=== PATIENT | male | born 1945 | race Caucasian/White ===

== ENCOUNTER 2017-08-21 18:22 | Observation (INO) | payer MEDICARE, OTHER ==
[~2017-08-21] VITALS: Ht 175.3 cm; Wt 100.3 kg
[~2017-08-21 18:22] MED LIST: ASPI-1265 PO; BENA20TA2 PO; CARV-50 PO; SIMV20TA5 PO
[2017-08-21 18:47] LABS: BASOPHILS % (AUTO) 0.7 % (0-1); EOSINOPHILS # (AUTO) 0.2 X10'3 (0-0.9); EOSINOPHILS % (AUTO) 3.1 % (0-6); HEMATOCRIT 46.6 % (42.0-52.0); HEMOGLOBIN 15.3 g/dl (14.0-17.9); LYMPHOCYTES # (AUTO) 1.7 X10'3 (1.1-4.8); LYMPHOCYTES % (AUTO) 25.4 % (21-51); MEAN CORPUSCULAR HEMOGLOBIN 28.7 PG (27.0-31.0); MEAN CORPUSCULAR HGB CONC 32.9 % (33.0-36.5); MEAN CORPUSCULAR VOLUME 87.3 FL (78-98); MEAN PLATELET VOLUME 12.6 FL (7.4-10.4); MONOCYTES # (AUTO) 0.6 X10'3 (0-0.9); MONOCYTES % (AUTO) 9.4 % (2-12); NEUTROPHILS # (AUTO) 4.1 X10'3 (1.8-7.7); NEUTROPHILS % (AUTO) 61.4 % (42-75); PLATELET COUNT 115 X10'3 (140-440); RED BLOOD COUNT 5.34 X10'6 (4.70-6.10); WHITE BLOOD COUNT 6.7 X10'3 (4.5-11.0)
[2017-08-21 19:01] LABS: PARTIAL THROMBOPLASTIN TIME 26 SECONDS (22-32); PROTHROMBIN TIME 10.2 SECONDS (9.0-12.0)
[2017-08-21 19:03] LABS: ALANINE AMINOTRANSFERASE 50 U/L (12-78); ALBUMIN 3.9 G/DL (3.4-5.0); ALBUMIN/GLOBULIN RATIO 1.1 (1.1-1.5); ALKALINE PHOSPHATASE 52 IU/L (46-116); ANION GAP 9 (8-16); ASPARTATE AMINO TRANSFERASE 45 U/L (10-37); BILIRUBIN,TOTAL 0.5 MG/DL (0.1-1.0); BLOOD UREA NITROGEN 20 MG/DL (7-18); CHLORIDE 109 MMOL/L (99-107); CREATININE 1.33 MG/DL (0.60-1.10); GLUCOSE 122 MG/DL (70-104); POTASSIUM 4.5 MMOL/L (3.5-5.1); SODIUM 143 MMOL/L (135-145); TOTAL CARBON DIOXIDE 24.8 MMOL/L (24-32); TOTAL PROTEIN 7.4 G/DL (6.4-8.2); eGFR 53 ML/MIN
[2017-08-21 21:49] LABS: LARGE PLATELETS FEW; PLATELET ESTIMATE DECREASED
[2017-08-21] MEDS ORDERED: digoxin 250mcg/ml 2ml ampule IV ONE (23:15)
[2017-08-22] MEDS ORDERED: furosemide 10 MG/1 ML 10ml inj IV ONE (00:30)
[2017-08-22] MEDS ORDERED: potassium Cl 20 mEq SR tablet PO PRN ×2 (03:30)
[2017-08-22] MEDS ORDERED: ondansetron/PF 4mg/2ml inj IV PRN (03:30)
[2017-08-22] MEDS ORDERED: magnesium hydroxide 30ml (MOM) UD suspension PO PRN (03:30)
[2017-08-22] MEDS ORDERED: mag hydrox/Alum hydrox/simeth 30ml oral suspension PO PRN (03:30)
[2017-08-22] MEDS ORDERED: potassium Cl 40MEQ/NS 500ml 500 ML IV PRN ×2 (03:30)
[2017-08-22] MEDS ORDERED: acetaminophen 325mg tablet PO PRN (03:30)
[2017-08-22] MEDS: K and/or MAG REPLACEMENT MC SCH (08:00)
[2017-08-22] MEDS ORDERED: furosemide 10 MG/1 ML 10ml inj IV SCH (08:00)
[2017-08-22] MEDS: aspirin 81mg tab.chew PO SCH (09:32)
[2017-08-22] MEDS: atorvastatin 10mg tablet PO SCH (09:32)
[2017-08-22] MEDS: carVEDilol 12.5mg tablet PO SCH ×2 (09:37→20:01)
[2017-08-22] MEDS: lisinopril 20mg tablet PO SCH (10:05)
[2017-08-22] MEDS ORDERED: furosemide 40mg/4ml inj IV SCH (20:14)
[2017-08-22 20:15] VITALS: BP 129/90
[2017-08-22] MEDS ORDERED: LORazepam 1 MG tablet PO ONE (21:00)
[2017-08-22] MEDS ORDERED: enoxaparin 40mg/0.4ml syringe SUBCUT SCH (23:40)
[2017-08-22] MEDS ORDERED: methylPREDNISolone sod succ 125mg/2ml vial IV ONE (23:50)
[2017-08-23] VITALS: BP 117/77
[2017-08-23] MEDS: ipratropium/albuterol 3ml nebule NEB SCH ×2 (02:23→08:23)
[2017-08-23 06:07] LABS: BASOPHILS % (AUTO) 0.2 % (0-1); EOSINOPHILS # (AUTO) 0.1 X10'3 (0-0.9); EOSINOPHILS % (AUTO) 1.5 % (0-6); HEMATOCRIT 48.9 % (42.0-52.0); HEMOGLOBIN 16.4 g/dl (14.0-17.9); LYMPHOCYTES # (AUTO) 0.6 X10'3 (1.1-4.8); LYMPHOCYTES % (AUTO) 8.5 % (21-51); MEAN CORPUSCULAR HEMOGLOBIN 28.9 PG (27.0-31.0); MEAN CORPUSCULAR HGB CONC 33.5 % (33.0-36.5); MEAN CORPUSCULAR VOLUME 86.3 FL (78-98); MEAN PLATELET VOLUME 12.8 FL (7.4-10.4); MONOCYTES # (AUTO) 0.1 X10'3 (0-0.9); MONOCYTES % (AUTO) 1.2 % (2-12); NEUTROPHILS # (AUTO) 6.5 X10'3 (1.8-7.7); NEUTROPHILS % (AUTO) 88.6 % (42-75); PLATELET COUNT 97 X10'3 (140-440); RED BLOOD COUNT 5.67 X10'6 (4.70-6.10); RED CELL DISTRIBUTION WIDTH 15.7 % (11.5-14.5); WHITE BLOOD COUNT 7.3 X10'3 (4.5-11.0)
[2017-08-23 06:37] LABS: ALBUMIN 3.9 G/DL (3.4-5.0); ANION GAP 13 (8-16); BLOOD UREA NITROGEN 29 MG/DL (7-18); CALCIUM 9.4 MG/DL (8.5-10.1); CHLORIDE 102 MMOL/L (99-107); CHOL/HDL RATIO 2.9 (0.00-4.99); CHOLESTEROL 138 MG/DL (0-200); CREATININE 1.21 MG/DL (0.60-1.10); GLUCOSE 162 MG/DL (70-104); HDL CHOLESTEROL 48 MG/DL (35-60); LDL CHOLESTEROL 73 MG/DL (50-100); SODIUM 140 MMOL/L (135-145); TOTAL CARBON DIOXIDE 24.8 MMOL/L (24-32); TRIGLYCERIDES 95 MG/DL (20-135); eGFR 59 ML/MIN
[2017-08-23 07:09] VITALS: BP 127/83
[2017-08-23] MEDS: atorvastatin 10mg tablet PO SCH (07:21)
[2017-08-23] MEDS: aspirin 81mg tab.chew PO SCH (07:21)
[2017-08-23] MEDS: carVEDilol 12.5mg tablet PO SCH (07:21)
[2017-08-23] MEDS: lisinopril 20mg tablet PO SCH (07:21)
[2017-08-23] MEDS: K and/or MAG REPLACEMENT MC SCH (07:31)
[2017-08-23] MEDS ORDERED: methylPREDNISolone sod succ 125mg/2ml vial IV SCH (08:00)
[2017-08-23] MEDS ORDERED: FURO40TA4 PO (09:53)
[2017-08-23] MEDS ORDERED: POTA10TA36 PO (09:53)
[2017-08-23 10:59] VITALS: BP 123/75
== END 2017-08-23 13:00 | disposition home or self-care (01) ==
LOC: ER 18:23 → ED HOLD 08-22 03:28 → EDBEDREQ 08-22 17:52 → SUR 3N 08-22 20:10
PROVIDERS: ADMIT Family Medicine; ATTEND Nurse Practitioner Family
DX: I13.0 Hypertensive heart and chronic kidney disease with heart failure and stage 1 through stage 4 chronic kidney disease, or unspecified chronic kidney disease (principal); I50.23 Acute on chronic systolic (congestive) heart failure; N18.3 Chronic kidney disease, stage 3 (moderate); E78.5 Hyperlipidemia, unspecified; M19.90 Unspecified osteoarthritis, unspecified site; I48.91 Unspecified atrial fibrillation; J96.20 Acute and chronic respiratory failure, unspecified whether with hypoxia or hypercapnia; Z87.891 Personal history of nicotine dependence; Z95.810 Presence of automatic (implantable) cardiac defibrillator
CPT/HCPCS: 36415; 71045; 80048; 80053; 80061; 83880; 84484; 85025; 85610; 85730; 87070; 93005; 93306; 94640; 94760; 96372; 96374; 96375; 96376; 99285; G0378; J1650; J1940; J2930

== ENCOUNTER 2017-08-27 08:03 | Inpatient (IN) | payer MEDICARE, OTHER ==
[~2017-08-27] VITALS: Ht 172.7 cm; Wt 11.3 kg
[~2017-08-27 08:03] MED LIST changes: +FURO40TA4 PO; +POTA10TA36 PO
[2017-08-27 08:24] LABS: BASOPHILS % (AUTO) 0.3 % (0-1); EOSINOPHILS # (AUTO) 0.2 X10'3 (0-0.9); EOSINOPHILS % (AUTO) 2.7 % (0-6); HEMATOCRIT 47.3 % (42.0-52.0); HEMOGLOBIN 15.9 g/dl (14.0-17.9); LYMPHOCYTES # (AUTO) 0.9 X10'3 (1.1-4.8); LYMPHOCYTES % (AUTO) 15.5 % (21-51); MEAN CORPUSCULAR HEMOGLOBIN 29.2 PG (27.0-31.0); MEAN CORPUSCULAR HGB CONC 33.6 % (33.0-36.5); MEAN CORPUSCULAR VOLUME 86.8 FL (78-98); MEAN PLATELET VOLUME 12.4 FL (7.4-10.4); MONOCYTES # (AUTO) 0.6 X10'3 (0-0.9); MONOCYTES % (AUTO) 9.1 % (2-12); NEUTROPHILS # (AUTO) 4.4 X10'3 (1.8-7.7); NEUTROPHILS % (AUTO) 72.4 % (42-75); PLATELET COUNT 96 X10'3 (140-440); RED BLOOD COUNT 5.45 X10'6 (4.70-6.10); RED CELL DISTRIBUTION WIDTH 15.1 % (11.5-14.5); WHITE BLOOD COUNT 6.1 X10'3 (4.5-11.0)
[2017-08-27] MEDS ORDERED: normal saline 1000ML IV soln IVB ONE (08:30)
[2017-08-27 08:36] LABS: LARGE PLATELETS MODERATE; PARTIAL THROMBOPLASTIN TIME 23 SECONDS (22-32); PLATELET ESTIMATE DECREASED; PROTHROMBIN TIME 10.6 SECONDS (9.0-12.0)
[2017-08-27 08:42] LABS: ALANINE AMINOTRANSFERASE 29 U/L (12-78); ALBUMIN 3.3 G/DL (3.4-5.0); ALKALINE PHOSPHATASE 43 IU/L (46-116); ANION GAP 11 (8-16); ASPARTATE AMINO TRANSFERASE 11 U/L (10-37); BILIRUBIN,TOTAL 1.4 MG/DL (0.1-1.0); BLOOD UREA NITROGEN 40 MG/DL (7-18); BUN/CREATININE RATIO 28.2 (5.4-32.0); CALCIUM 8.7 MG/DL (8.5-10.1); CHLORIDE 101 MMOL/L (99-107); CREATININE 1.42 MG/DL (0.60-1.10); GLUCOSE 196 MG/DL (70-104); POTASSIUM 4.1 MMOL/L (3.5-5.1); SODIUM 137 MMOL/L (135-145); TOTAL CARBON DIOXIDE 24.8 MMOL/L (24-32); TOTAL PROTEIN 6.7 G/DL (6.4-8.2); eGFR 49 ML/MIN
[2017-08-27] MEDS ORDERED: ondansetron/PF 4mg/2ml inj IV PRN (12:30)
[2017-08-27] MEDS ORDERED: mag hydrox/Alum hydrox/simeth 30ml oral suspension PO PRN (12:30)
[2017-08-27] MEDS ORDERED: magnesium hydroxide 30ml (MOM) UD suspension PO PRN (12:30)
[2017-08-27] MEDS ORDERED: acetaminophen 325mg tablet PO PRN (12:30)
[2017-08-27] MEDS: sodium chloride 0.45% 1,000 ML IV SCH (14:05)
[2017-08-27] MEDS ORDERED: POTASSIUM (14:27)
[2017-08-27] MEDS ORDERED: LASIX (14:27)
[2017-08-27] MEDS ORDERED: BENA20TA2 PO (14:27)
[2017-08-27] MEDS ORDERED: SIMV40TA4 (17:57)
[2017-08-27] MEDS: carVEDilol 12.5mg tablet PO SCH (20:03)
[2017-08-27] MEDS: atorvastatin 10mg tablet PO SCH (20:49)
[2017-08-27] MEDS: heparin, porcine 5000 units/ml vial SQ SCH (20:50)
[2017-08-27 21:50] VITALS: BP 103/56
[2017-08-27] MEDS ORDERED: temazepam 15mg capsule PO PRN (23:40)
[2017-08-28] VITALS (8 sets, daily range): BP systolic 89–133; BP diastolic 40–85
[2017-08-28] MEDS: heparin, porcine 5000 units/ml vial SQ SCH ×2 (08:00→20:47)
[2017-08-28] MEDS: aspirin 81mg tab.chew PO SCH (08:39)
[2017-08-28] MEDS: carVEDilol 12.5mg tablet PO SCH ×2 (08:39→20:46)
[2017-08-28 09:05] LABS: BASOPHILS % (AUTO) 0.4 % (0-1); EOSINOPHILS # (AUTO) 0.1 X10'3 (0-0.9); EOSINOPHILS % (AUTO) 2.1 % (0-6); HEMATOCRIT 47.4 % (42.0-52.0); HEMOGLOBIN 15.6 g/dl (14.0-17.9); LYMPHOCYTES # (AUTO) 1.1 X10'3 (1.1-4.8); LYMPHOCYTES % (AUTO) 20.4 % (21-51); MEAN CORPUSCULAR HEMOGLOBIN 28.7 PG (27.0-31.0); MEAN CORPUSCULAR VOLUME 86.9 FL (78-98); MONOCYTES # (AUTO) 0.4 X10'3 (0-0.9); NEUTROPHILS # (AUTO) 3.6 X10'3 (1.8-7.7); NEUTROPHILS % (AUTO) 69.1 % (42-75); PLATELET COUNT 95 X10'3 (140-440); RED BLOOD COUNT 5.45 X10'6 (4.70-6.10); RED CELL DISTRIBUTION WIDTH 15.8 % (11.5-14.5); WHITE BLOOD COUNT 5.2 X10'3 (4.5-11.0)
[2017-08-28 09:14] LABS: ALBUMIN 3.3 G/DL (3.4-5.0); ANION GAP 13 (8-16); BLOOD UREA NITROGEN 25 MG/DL (7-18); CALCIUM 8.6 MG/DL (8.5-10.1); CHLORIDE 101 MMOL/L (99-107); CREATININE 1.25 MG/DL (0.60-1.10); GLUCOSE 240 MG/DL (70-104); SODIUM 136 MMOL/L (135-145); TOTAL CARBON DIOXIDE 22.5 MMOL/L (24-32); eGFR 57 ML/MIN
[2017-08-28] MEDS: sodium chloride 0.45% 1,000 ML IV SCH (17:30)
[2017-08-28] MEDS: lisinopril 20mg tablet PO SCH (20:46)
[2017-08-28] MEDS: atorvastatin 10mg tablet PO SCH (20:46)
[2017-08-29] VITALS: BP 126/66
[2017-08-29 05:39] LABS: BASOPHILS % (AUTO) 0.4 % (0-1); EOSINOPHILS # (AUTO) 0.2 X10'3 (0-0.9); EOSINOPHILS % (AUTO) 3.8 % (0-6); HEMOGLOBIN 15.4 g/dl (14.0-17.9); LYMPHOCYTES # (AUTO) 1.4 X10'3 (1.1-4.8); MEAN CORPUSCULAR HEMOGLOBIN 28.8 PG (27.0-31.0); MEAN CORPUSCULAR HGB CONC 33.5 % (33.0-36.5); MEAN CORPUSCULAR VOLUME 86.2 FL (78-98); MEAN PLATELET VOLUME 13.1 FL (7.4-10.4); MONOCYTES # (AUTO) 0.7 X10'3 (0-0.9); MONOCYTES % (AUTO) 12.2 % (2-12); NEUTROPHILS # (AUTO) 3.1 X10'3 (1.8-7.7); NEUTROPHILS % (AUTO) 57.6 % (42-75); PLATELET COUNT 92 X10'3 (140-440); RED BLOOD COUNT 5.34 X10'6 (4.70-6.10); RED CELL DISTRIBUTION WIDTH 15.4 % (11.5-14.5); WHITE BLOOD COUNT 5.4 X10'3 (4.5-11.0)
[2017-08-29 05:44] LABS: ALBUMIN 3.3 G/DL (3.4-5.0); ANION GAP 9 (8-16); BLOOD UREA NITROGEN 20 MG/DL (7-18); BUN/CREATININE RATIO 17.4 (5.4-32.0); CALCIUM 8.9 MG/DL (8.5-10.1); CHLORIDE 104 MMOL/L (99-107); CREATININE 1.15 MG/DL (0.60-1.10); GLUCOSE 119 MG/DL (70-104); POTASSIUM 4.6 MMOL/L (3.5-5.1); SODIUM 141 MMOL/L (135-145); TOTAL CARBON DIOXIDE 28.5 MMOL/L (24-32); eGFR 62 ML/MIN
[2017-08-29] MEDS: sodium chloride 0.45% 1,000 ML IV SCH (06:50)
[2017-08-29 07:09] VITALS: BP 103/70
[2017-08-29 07:10] VITALS: BP_SYST 101; BP_SYST 91; BP_DIAS 68; BP_DIAS 72
[2017-08-29 07:11] VITALS: BP 103/70
[2017-08-29 07:42] LABS: LARGE PLATELETS FEW; PLATELET ESTIMATE DECREASED
[2017-08-29] MEDS: heparin, porcine 5000 units/ml vial SQ SCH (07:59)
[2017-08-29] MEDS: lisinopril 20mg tablet PO SCH (08:00)
[2017-08-29] MEDS: carVEDilol 12.5mg tablet PO SCH (08:03)
[2017-08-29] MEDS: aspirin 81mg tab.chew PO SCH (08:03)
== END 2017-08-29 10:08 | disposition home or self-care (01) | DRG 683 ==
LOC: ER 08:04 → ED HOLD 12:27 → SUR 3N 21:50
PROVIDERS: ADMIT Internal Medicine; ATTEND Internal Medicine
PROC: 4B02XSZ Measurement of Cardiac Pacemaker, External Approach (ICD-10-PCS; principal; 2017-08-27)
DX: N17.9 Acute kidney failure, unspecified (principal); I13.0 Hypertensive heart and chronic kidney disease with heart failure and stage 1 through stage 4 chronic kidney disease, or unspecified chronic kidney disease; I50.9 Heart failure, unspecified; R56.9 Unspecified convulsions; I95.1 Orthostatic hypotension; E86.0 Dehydration; N18.9 Chronic kidney disease, unspecified; Z60.2 Problems related to living alone; E78.5 Hyperlipidemia, unspecified; I25.10 Atherosclerotic heart disease of native coronary artery without angina pectoris; T50.2X5A Adverse effect of carbonic-anhydrase inhibitors, benzothiadiazides and other diuretics, initial encounter; Z95.810 Presence of automatic (implantable) cardiac defibrillator; Z79.899 Other long term (current) drug therapy; Z79.82 Long term (current) use of aspirin; Z82.49 Family history of ischemic heart disease and other diseases of the circulatory system; Y92.89 Other specified places as the place of occurrence of the external cause
CPT/HCPCS: 36415; 70450; 71045; 80048; 80053; 82948; 83880; 84484; 85025; 85610; 85730; 87070; 93005; 93880; 96360; 99285; J1644; J7030

== ENCOUNTER 2017-12-08 19:37 | Emergency (ER) | payer MEDICARE, OTHER ==
[~2017-12-08] VITALS: Ht 175.3 cm; Wt 104.5 kg
[~2017-12-08 19:37] MED LIST changes: -BENA20TA2 PO; +BENA20TA82 PO; -FURO40TA4 PO; -POTA10TA36 PO; -SIMV20TA5 PO; +SIMV40TA4
[2017-12-08 20:26] LABS: BASOPHILS # (AUTO) 0.1 X10'3 (0-0.2); BASOPHILS % (AUTO) 0.9 % (0-1); EOSINOPHILS # (AUTO) 0.2 X10'3 (0-0.9); EOSINOPHILS % (AUTO) 2.9 % (0-6); HEMATOCRIT 42.9 % (42.0-52.0); HEMOGLOBIN 14.6 g/dl (14.0-17.9); LYMPHOCYTES # (AUTO) 1.5 X10'3 (1.1-4.8); LYMPHOCYTES % (AUTO) 20.4 % (21-51); MEAN CORPUSCULAR HEMOGLOBIN 28.7 PG (27.0-31.0); MEAN CORPUSCULAR HGB CONC 34.1 % (33.0-36.5); MEAN PLATELET VOLUME 12.2 FL (7.4-10.4); MONOCYTES # (AUTO) 0.6 X10'3 (0-0.9); MONOCYTES % (AUTO) 8.4 % (2-12); NEUTROPHILS # (AUTO) 4.9 X10'3 (1.8-7.7); NEUTROPHILS % (AUTO) 67.4 % (42-75); RED BLOOD COUNT 5.11 X10'6 (4.70-6.10); RED CELL DISTRIBUTION WIDTH 16.6 % (11.5-14.5); WHITE BLOOD COUNT 7.2 X10'3 (4.5-11.0)
[2017-12-08 20:33] LABS: INR 0.9 INR; PARTIAL THROMBOPLASTIN TIME 25 SECONDS (22-32); PROTHROMBIN TIME 9.8 SECONDS (9.0-12.0)
[2017-12-08 20:37] LABS: ALANINE AMINOTRANSFERASE 23 U/L (12-78); ALBUMIN 3.4 G/DL (3.4-5.0); ALBUMIN/GLOBULIN RATIO 1.1 (1.1-1.5); ALKALINE PHOSPHATASE 56 IU/L (46-116); ANION GAP 11 (8-16); ASPARTATE AMINO TRANSFERASE 13 U/L (10-37); BILIRUBIN,TOTAL 0.4 MG/DL (0.1-1.0); BLOOD UREA NITROGEN 27 MG/DL (7-18); BUN/CREATININE RATIO 19.9 (5.4-32.0); CALCIUM 8.4 MG/DL (8.5-10.1); CHLORIDE 104 MMOL/L (99-107); CREATININE 1.36 MG/DL (0.60-1.10); POTASSIUM 3.8 MMOL/L (3.5-5.1); SODIUM 139 MMOL/L (135-145); TOTAL CARBON DIOXIDE 24.4 MMOL/L (24-32); TOTAL PROTEIN 6.6 G/DL (6.4-8.2); eGFR 51 ML/MIN
[2017-12-08 20:38] LABS: GLUCOSE 166 MG/DL (70-104)
[2017-12-08 20:49] LABS: PLATELET COUNT 114 X10'3 (140-440)
[2017-12-08] MEDS ORDERED: normal saline 1000ml 1,000 ML IV ONE (21:20)
[2017-12-09 00:11] VITALS: BP 140/88
== END 2017-12-09 00:13 | disposition home or self-care (01) ==
LOC: ER 19:38
DX: R55 Syncope and collapse (principal); I10 Essential (primary) hypertension; Z95.0 Presence of cardiac pacemaker; Z60.2 Problems related to living alone; Z98.890 Other specified postprocedural states; Z79.82 Long term (current) use of aspirin; Z79.899 Other long term (current) drug therapy
CPT/HCPCS: 36415; 71045; 80053; 83880; 84484; 85025; 85610; 85730; 93005; 96360; 99285; J7030

== ENCOUNTER 2018-08-22 04:07 | Emergency (ER) | payer MEDICARE, OTHER ==
[~2018-08-22] VITALS: Ht 172.7 cm; Wt 106.8 kg
[2018-08-22 04:56] LABS: HEMATOCRIT 44.5 % (42.0-52.0); MEAN CORPUSCULAR VOLUME 86.7 FL (78-98); MEAN PLATELET VOLUME 11.6 FL (7.4-10.4); RED BLOOD COUNT 5.13 X10'6 (4.70-6.10)
[2018-08-22 04:58] LABS: EOSINOPHILS # (AUTO) 0.3 X10'3 (0-0.9); EOSINOPHILS % (AUTO) 6.4 % (0-6); HEMOGLOBIN 14.8 g/dl (14.0-17.9); LYMPHOCYTES # (AUTO) 1.4 X10'3 (1.1-4.8); MEAN CORPUSCULAR HEMOGLOBIN 28.9 PG (27.0-31.0); MEAN CORPUSCULAR HGB CONC 33.3 g/dL (33.0-36.5); MONOCYTES # (AUTO) 0.6 X10'3 (0-0.9); MONOCYTES % (AUTO) 11.4 % (2-12); NEUTROPHILS # (AUTO) 2.8 X10'3 (1.8-7.7); NEUTROPHILS % (AUTO) 54.2 % (42-75); PLATELET COUNT 108 X10'3 (140-440); RED CELL DISTRIBUTION WIDTH 15.7 % (11.5-14.5); WHITE BLOOD COUNT 5.1 X10'3 (4.5-11.0)
[2018-08-22 05:18] LABS: ALANINE AMINOTRANSFERASE 27 U/L (12-78); ALBUMIN 3.5 G/DL (3.4-5.0); ALKALINE PHOSPHATASE 57 IU/L (46-116); ANION GAP 8 (8-16); ASPARTATE AMINO TRANSFERASE 19 U/L (10-37); BILIRUBIN,TOTAL 0.6 MG/DL (0.1-1.0); BLOOD UREA NITROGEN 22 MG/DL (7-18); BUN/CREATININE RATIO 19.6 (5.4-32.0); CALCIUM 9.1 MG/DL (8.5-10.1); CHLORIDE 106 MMOL/L (99-107); CREATININE 1.12 MG/DL (0.60-1.10); GLUCOSE 143 MG/DL (70-104); POTASSIUM 4.6 MMOL/L (3.5-5.1); SODIUM 138 MMOL/L (135-145); eGFR 64 ML/MIN
[2018-08-22 05:24] LABS: GIANT PLATELET FEW; LARGE PLATELETS FEW; PLATELET ESTIMATE DECREASED
[2018-08-22] MEDS ORDERED: iohexol 350MG/ML 100ml bottle IV ONE (05:35)
--- NOTE | 2018-08-22 08:10 | NUR ---
patient on RA 95-96%.Call light within reach.
[2018-08-22 08:54] VITALS: BP 122/67
== END 2018-08-22 08:59 | disposition home or self-care (01) ==
LOC: ER 04:08
DX: R06.02 Shortness of breath (principal); R53.1 Weakness; R42 Dizziness and giddiness; R53.83 Other fatigue; I11.0 Hypertensive heart disease with heart failure; I50.9 Heart failure, unspecified; Z95.0 Presence of cardiac pacemaker; Z98.890 Other specified postprocedural states; Z79.82 Long term (current) use of aspirin; Z79.899 Other long term (current) drug therapy; Z87.891 Personal history of nicotine dependence; Z60.2 Problems related to living alone
CPT/HCPCS: 36415; 71045; 71275; 80053; 83735; 83880; 84484; 85025; 85610; 93005; 99284; Q9967

== ENCOUNTER 2019-10-03 01:20 | Emergency (ER) | payer MEDICARE, OTHER ==
[~2019-10-03] VITALS: Ht 175.3 cm; Wt 102.3 kg
[~2019-10-03 01:20] MED LIST changes: +SIMV-45; -SIMV40TA4
[2019-10-03 01:45] LABS: BASOPHILS # (AUTO) 0.1 X10'3 (0-0.2); BASOPHILS % (AUTO) 0.9 % (0-1); EOSINOPHILS # (AUTO) 0.2 X10'3 (0-0.9); HEMATOCRIT 48.6 % (42.0-52.0); LYMPHOCYTES # (AUTO) 1.4 X10'3 (1.1-4.8); LYMPHOCYTES % (AUTO) 24.5 % (21-51); MEAN CORPUSCULAR HGB CONC 32.9 g/dL (33.0-36.5); MEAN CORPUSCULAR VOLUME 91.1 FL (78-98); MEAN PLATELET VOLUME 11.1 FL (7.4-10.4); MONOCYTES # (AUTO) 0.6 X10'3 (0-0.9); MONOCYTES % (AUTO) 9.9 % (2-12); NEUTROPHILS # (AUTO) 3.6 X10'3 (1.8-7.7); NEUTROPHILS % (AUTO) 61.7 % (42-75); PLATELET COUNT 123 X10'3 (140-440); RED BLOOD COUNT 5.34 X10'6 (4.70-6.10); RED CELL DISTRIBUTION WIDTH 15.8 % (11.5-14.5); WHITE BLOOD COUNT 5.8 X10'3 (4.5-11.0)
[2019-10-03 02:14] LABS: ALANINE AMINOTRANSFERASE 37 U/L (12-78); ALBUMIN 3.6 G/DL (3.4-5.0); ALBUMIN/GLOBULIN RATIO 1.1 (1.1-1.5); ALKALINE PHOSPHATASE 42 IU/L (46-116); ANION GAP 9 (8-16); ASPARTATE AMINO TRANSFERASE 18 U/L (10-37); BILIRUBIN,TOTAL 0.5 MG/DL (0.1-1.0); BLOOD UREA NITROGEN 19 MG/DL (7-18); BUN/CREATININE RATIO 13.9 (5.4-32.0); CALCIUM 8.6 MG/DL (8.5-10.1); CHLORIDE 107 MMOL/L (99-107); CREATININE 1.37 MG/DL (0.60-1.10); GLUCOSE 133 MG/DL (70-104); POTASSIUM 4.6 MMOL/L (3.5-5.1); SODIUM 139 MMOL/L (135-145); TOTAL CARBON DIOXIDE 22.7 MMOL/L (24-32); TOTAL PROTEIN 6.9 G/DL (6.4-8.2); eGFR 51 ML/MIN
[2019-10-03 02:16] LABS: D-DIMER 0.21 MG/L FEU (0-0.50)
[2019-10-03 02:22] LABS: MAGNESIUM 2.1 MG/DL (1.5-2.4)
[2019-10-03] MEDS ORDERED: furosemide 10 MG/1 ML 10ml inj IV ONE (02:40)
[2019-10-03] MEDS ORDERED: POTA20TA19 PO (02:53)
[2019-10-03] MEDS ORDERED: FURO-150 PO (02:53)
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
[2019-10-03 03:01] VITALS: BP 113/80
[2019-10-03 03:33] LABS: GIANT PLATELET FEW; LARGE PLATELETS FEW; PLATELET ESTIMATE DECREASED
== END 2019-10-03 03:02 | disposition home or self-care (01) ==
LOC: ER 01:20
DX: I11.0 Hypertensive heart disease with heart failure (principal); I50.9 Heart failure, unspecified; R06.00 Dyspnea, unspecified; M19.90 Unspecified osteoarthritis, unspecified site; Z95.0 Presence of cardiac pacemaker; Z98.890 Other specified postprocedural states; Z72.89 Other problems related to lifestyle; Z60.2 Problems related to living alone; Z79.82 Long term (current) use of aspirin; Z79.899 Other long term (current) drug therapy
CPT/HCPCS: 36415; 71045; 80053; 83735; 83880; 84484; 85025; 85379; 93005; 96374; 99285; J1940

== ENCOUNTER 2020-03-20 07:24 | Emergency (ER) | payer MEDICARE, OTHER ==
[~2020-03-20] VITALS: Ht 172.7 cm; Wt 1.0 kg
[~2020-03-20 07:24] MED LIST changes: -CARV-50 PO; +CARV12.545 PO; +CELE-193 PO; +CITA20TA61 PO; +FLO0.4C PO; +FURO-150 PO; +SPIR25TA5 PO
--- NOTE | 2020-03-20 07:50 | NUR ---
placed on nc @ 2L for comfort/reassurance; saturation @ 95% RA & fulsentences prior to placement.
[2020-03-20 07:58] LABS: EOSINOPHILS # (AUTO) 0.1 X10'3 (0-0.9); MONOCYTES # (AUTO) 0.7 X10'3 (0-0.9); NEUTROPHILS # (AUTO) 5.3 X10'3 (1.8-7.7)
[2020-03-20 08:00] LABS: BASOPHILS # (AUTO) 0.1 X10'3 (0-0.2); BASOPHILS % (AUTO) 1.1 % (0-1); HEMATOCRIT 48.6 % (42.0-52.0); LYMPHOCYTES # (AUTO) 0.6 X10'3 (1.1-4.8); MEAN CORPUSCULAR HGB CONC 32.8 g/dL (33.0-36.5); MEAN CORPUSCULAR VOLUME 88.2 FL (78-98); MEAN PLATELET VOLUME 11.6 FL (7.4-10.4); MONOCYTES % (AUTO) 9.8 % (2-12); NEUTROPHILS % (AUTO) 79.1 % (42-75); PLATELET COUNT 101 X10'3 (140-440); RED BLOOD COUNT 5.51 X10'6 (4.70-6.10); RED CELL DISTRIBUTION WIDTH 15.9 % (11.5-14.5); WHITE BLOOD COUNT 6.7 X10'3 (4.5-11.0)
[2020-03-20 08:13] LABS: ALANINE AMINOTRANSFERASE 73 U/L (12-78); ALBUMIN 3.5 G/DL (3.4-5.0); ALKALINE PHOSPHATASE 61 IU/L (46-116); ANION GAP 11 (8-16); ASPARTATE AMINO TRANSFERASE 37 U/L (10-37); BILIRUBIN,TOTAL 1.4 MG/DL (0.1-1.0); BLOOD UREA NITROGEN 20 MG/DL (7-18); BUN/CREATININE RATIO 18.5 (5.4-32.0); CALCIUM 9.5 MG/DL (8.5-10.1); CHLORIDE 106 MMOL/L (99-107); CREATININE 1.08 MG/DL (0.60-1.10); GLUCOSE 148 MG/DL (70-104); POTASSIUM 4.3 MMOL/L (3.5-5.1); SODIUM 140 MMOL/L (135-145); TOTAL CARBON DIOXIDE 22.6 MMOL/L (24-32); TOTAL PROTEIN 6.9 G/DL (6.4-8.2); eGFR 66 ML/MIN
[2020-03-20 08:28] LABS: C-REACTIVE PROTEIN 1.56 MG/DL (0.0-0.5); FERRITIN 53 NG/ML (26-388); LACTATE DEHYDROGENASE 148 U/L (85-227)
[2020-03-20 10:00] VITALS: BP 112/75
== END 2020-03-20 10:02 | disposition home or self-care (01) ==
LOC: ER 07:24
DX: R06.02 Shortness of breath (principal); Z20.828 Contact with and (suspected) exposure to other viral communicable diseases; I13.0 Hypertensive heart and chronic kidney disease with heart failure and stage 1 through stage 4 chronic kidney disease, or unspecified chronic kidney disease; I50.9 Heart failure, unspecified; N18.9 Chronic kidney disease, unspecified; Z95.0 Presence of cardiac pacemaker
CPT/HCPCS: 71045; 80053; 82728; 83605; 83615; 83880; 84145; 84484; 85025; 85384; 86140; 87040; 87635; 93005; 99285; C9803

== ENCOUNTER 2020-03-27 11:06 | Emergency (ER) | payer MEDICARE, OTHER ==
[~2020-03-27] VITALS: Ht 172.7 cm; Wt 100.0 kg
--- NOTE | 2020-03-27 12:09 | NUR ---
PA at bedside
[2020-03-27 12:16] LABS: EOSINOPHILS # (AUTO) 0.1 X10'3 (0-0.9); LYMPHOCYTES # (AUTO) 0.6 X10'3 (1.1-4.8); MONOCYTES # (AUTO) 0.6 X10'3 (0-0.9); NEUTROPHILS # (AUTO) 5.7 X10'3 (1.8-7.7)
[2020-03-27 12:17] LABS: BASOPHILS % (AUTO) 0.5 % (0-1); HEMATOCRIT 49.8 % (42.0-52.0); HEMOGLOBIN 16.1 g/dl (14.0-17.9); LYMPHOCYTES % (AUTO) 8.9 % (21-51); MEAN CORPUSCULAR HEMOGLOBIN 28.7 PG (27.0-31.0); MEAN CORPUSCULAR HGB CONC 32.4 g/dL (33.0-36.5); MEAN CORPUSCULAR VOLUME 88.6 FL (78-98); MEAN PLATELET VOLUME 11.7 FL (7.4-10.4); MONOCYTES % (AUTO) 8.8 % (2-12); NEUTROPHILS % (AUTO) 80.8 % (42-75); PLATELET COUNT 120 X10'3 (140-440); RED BLOOD COUNT 5.62 X10'6 (4.70-6.10); RED CELL DISTRIBUTION WIDTH 16.2 % (11.5-14.5); WHITE BLOOD COUNT 7.1 X10'3 (4.5-11.0)
[2020-03-27 12:31] LABS: ALANINE AMINOTRANSFERASE 80 U/L (12-78); ALBUMIN 3.7 G/DL (3.4-5.0); ALKALINE PHOSPHATASE 75 IU/L (46-116); ANION GAP 8 (8-16); ASPARTATE AMINO TRANSFERASE 44 U/L (10-37); BILIRUBIN,TOTAL 0.9 MG/DL (0.1-1.0); BLOOD UREA NITROGEN 34 MG/DL (7-18); BUN/CREATININE RATIO 26.2 (5.4-32.0); CALCIUM 9.2 MG/DL (8.5-10.1); CHLORIDE 104 MMOL/L (99-107); GLUCOSE 193 MG/DL (70-104); SODIUM 136 MMOL/L (135-145); TOTAL CARBON DIOXIDE 24.4 MMOL/L (24-32); TOTAL PROTEIN 7.3 G/DL (6.4-8.2); eGFR 54 ML/MIN
[2020-03-27 12:32] LABS: POTASSIUM 4.8 MMOL/L (3.5-5.1)
[2020-03-27 12:37] LABS: ANISOCYTOSIS 1+; LARGE PLATELETS FEW; PLATELET ESTIMATE DECREASED
[2020-03-27 12:38] LABS: ELLIPTOCYTES FEW; POLYCHROMASIA FEW
--- NOTE | 2020-03-27 12:41 | NUR ---
Pt c/o feeling sudden onset SOB, worse. PA notified.
[2020-03-27 12:53] LABS: D-DIMER 0.62 MG/L FEU (0-0.50)
[2020-03-27] MEDS ORDERED: furosemide 10 MG/1 ML 10ml inj IV ONE (12:55)
[2020-03-27] MEDS ORDERED: iohexol 350MG/ML 100ml bottle IV ONE (13:28)
--- NOTE | 2020-03-27 13:59 | NUR ---
Pt back in room after CT scan, A and O x4
[2020-03-27] MEDS ORDERED: ondansetron 4mg rapidly disintigrating tab PO ONE (14:05)
--- NOTE | 2020-03-27 15:13 | NUR ---
Pt ambulating well in oliver, no dizziness, steady on feet. Tolerating PO
[2020-03-27 15:22] VITALS: BP 105/70
[2020-03-27] MEDS ORDERED: ONDA4TAB6 PO (15:31)
[2020-03-27] MEDS ORDERED: DICY10CA88 PO (15:31)
== END 2020-03-27 15:42 | disposition home or self-care (01) ==
LOC: ER 11:07
DX: R42 Dizziness and giddiness (principal); R11.0 Nausea; R06.02 Shortness of breath; E66.9 Obesity, unspecified; I11.0 Hypertensive heart disease with heart failure; I50.9 Heart failure, unspecified; I48.91 Unspecified atrial fibrillation; Z98.890 Other specified postprocedural states; Z95.0 Presence of cardiac pacemaker; Z79.82 Long term (current) use of aspirin; Z79.899 Other long term (current) drug therapy; Z79.01 Long term (current) use of anticoagulants
CPT/HCPCS: 36415; 71045; 71275; 80053; 83880; 84484; 85008; 85025; 85379; 93005; 96374; 99285; J1940; Q9967

== ENCOUNTER 2020-04-04 13:34 | Day surgery (SDC) | payer MEDICARE, OTHER ==
[2020-03-29 12:47] LABS: BASOPHILS % (AUTO) 0.6 % (0-1); EOSINOPHILS # (AUTO) 0.1 X10'3 (0-0.9); EOSINOPHILS % (AUTO) 1.5 % (0-6); HEMATOCRIT 48.9 % (42.0-52.0); LYMPHOCYTES # (AUTO) 0.7 X10'3 (1.1-4.8); LYMPHOCYTES % (AUTO) 11.8 % (21-51); MEAN CORPUSCULAR HEMOGLOBIN 28.7 PG (27.0-31.0); MEAN CORPUSCULAR HGB CONC 32.8 g/dL (33.0-36.5); MEAN CORPUSCULAR VOLUME 87.6 FL (78-98); MONOCYTES # (AUTO) 0.7 X10'3 (0-0.9); MONOCYTES % (AUTO) 11.3 % (2-12); NEUTROPHILS # (AUTO) 4.3 X10'3 (1.8-7.7); NEUTROPHILS % (AUTO) 74.8 % (42-75); PLATELET COUNT 116 X10'3 (140-440); RED BLOOD COUNT 5.59 X10'6 (4.70-6.10); RED CELL DISTRIBUTION WIDTH 16.2 % (11.5-14.5); WHITE BLOOD COUNT 5.8 X10'3 (4.5-11.0)
[2020-03-29 12:57] LABS: ALBUMIN 3.7 G/DL (3.4-5.0); ANION GAP 7 (8-16); BLOOD UREA NITROGEN 35 MG/DL (7-18); BUN/CREATININE RATIO 24.6 (5.4-32.0); CALCIUM 9.5 MG/DL (8.5-10.1); CHLORIDE 105 MMOL/L (99-107); CREATININE 1.42 MG/DL (0.60-1.10); GLUCOSE 150 MG/DL (70-104); POTASSIUM 4.5 MMOL/L (3.5-5.1); SODIUM 140 MMOL/L (135-145); TOTAL CARBON DIOXIDE 27.6 MMOL/L (24-32); eGFR 48 ML/MIN
[2020-03-29 13:04] LABS: PARTIAL THROMBOPLASTIN TIME 29 SECONDS (22-32)
[~2020-04-04] VITALS: Ht 172.7 cm; Wt 101.9 kg
[2020-04-04] VITALS (17 sets, daily range): BP systolic 102–117; BP diastolic 66–91
[~2020-04-04 13:34] MED LIST changes: +DICY10CA88 PO; +ONDA4TAB6 PO
[2020-04-04] MEDS ORDERED: fentaNYL/PF 50MCG/1 ML 2ML syringe IV ONE (13:55)
[2020-04-04] MEDS ORDERED: MIDAZolam 1mg/ml 10ml vial IV ONE (13:55)
[2020-04-04] MEDS ORDERED: normal saline 1000ml 1,000 ML IV SCH (13:55)
[2020-04-04] MEDS ORDERED: ZOLP5TAB8 PO (14:15)
[2020-04-04] MEDS ORDERED: BUSP10TA3 PO (14:15)
[2020-04-04] MEDS ORDERED: APIX5TAB3 PO (14:15)
== END 2020-04-04 18:30 | disposition home or self-care (01) ==
LOC: SSTAY O 13:34
PROVIDERS: ATTEND Student in an Organized Health Care Education/Training Program
DX: I48.91 Unspecified atrial fibrillation (principal); G47.33 Obstructive sleep apnea (adult) (pediatric); I44.7 Left bundle-branch block, unspecified; I11.0 Hypertensive heart disease with heart failure; I50.9 Heart failure, unspecified; I05.0 Rheumatic mitral stenosis; Z95.810 Presence of automatic (implantable) cardiac defibrillator; Z79.899 Other long term (current) drug therapy
CPT/HCPCS: 36415; 80048; 85025; 85610; 85730; 92960; 93005; 94799; J2250; J3010; J7030

== ENCOUNTER 2020-04-05 00:25 | Emergency (ER) | payer MEDICARE, OTHER ==
[~2020-04-05] VITALS: Ht 172.7 cm; Wt 100.0 kg
[~2020-04-05 00:25] MED LIST changes: +APIX5TAB3 PO; -ASPI-1265 PO; +BUSP10TA3 PO; -DICY10CA88 PO; -ONDA4TAB6 PO; +ZOLP5TAB8 PO
[2020-04-05] MEDS ORDERED: normal saline 1000ML IV soln IVB ONE (00:35)
[2020-04-05 00:51] LABS: BASOPHILS % (AUTO) 0.7 % (0-1); EOSINOPHILS # (AUTO) 0.1 X10'3 (0-0.9); HEMOGLOBIN 15.7 g/dl (14.0-17.9); LYMPHOCYTES # (AUTO) 0.9 X10'3 (1.1-4.8); MONOCYTES # (AUTO) 0.8 X10'3 (0-0.9)
[2020-04-05 00:53] LABS: EOSINOPHILS % (AUTO) 1.9 % (0-6); HEMATOCRIT 47.7 % (42.0-52.0); MEAN CORPUSCULAR HEMOGLOBIN 28.7 PG (27.0-31.0); MEAN CORPUSCULAR HGB CONC 32.9 g/dL (33.0-36.5); MEAN CORPUSCULAR VOLUME 87.2 FL (78-98); MEAN PLATELET VOLUME 11.7 FL (7.4-10.4); MONOCYTES % (AUTO) 12.6 % (2-12); NEUTROPHILS # (AUTO) 4.8 X10'3 (1.8-7.7); NEUTROPHILS % (AUTO) 71.8 % (42-75); RED BLOOD COUNT 5.47 X10'6 (4.70-6.10); RED CELL DISTRIBUTION WIDTH 15.7 % (11.5-14.5); WHITE BLOOD COUNT 6.7 X10'3 (4.5-11.0)
[2020-04-05 00:54] LABS: PLATELET COUNT 100 X10'3 (140-440)
[2020-04-05 00:58] LABS: ALANINE AMINOTRANSFERASE 73 U/L (12-78); ALBUMIN 3.3 G/DL (3.4-5.0); ALKALINE PHOSPHATASE 75 IU/L (46-116); ANION GAP 8 (8-16); ASPARTATE AMINO TRANSFERASE 39 U/L (10-37); BLOOD UREA NITROGEN 31 MG/DL (7-18); BUN/CREATININE RATIO 24.8 (5.4-32.0); CALCIUM 8.8 MG/DL (8.5-10.1); CHLORIDE 107 MMOL/L (99-107); CREATININE 1.25 MG/DL (0.60-1.10); GLUCOSE 123 MG/DL (70-104); POTASSIUM 4.3 MMOL/L (3.5-5.1); SODIUM 139 MMOL/L (135-145); TOTAL CARBON DIOXIDE 23.8 MMOL/L (24-32); TOTAL PROTEIN 6.5 G/DL (6.4-8.2); eGFR 56 ML/MIN
[2020-04-05 01:07] LABS: MAGNESIUM 2.3 MG/DL (1.5-2.4)
[2020-04-05] MEDS ORDERED: LORazepam 1 MG tablet PO ONE ×2 (01:40→02:15)
--- NOTE | 2020-04-05 02:03 | NUR ---
Pt states unable to get a ride. Pt asked for a cab ride home stating he cannot pay.
[2020-04-05 02:24] VITALS: BP 116/83
== END 2020-04-05 02:33 | disposition home or self-care (01) ==
LOC: ER 00:25
DX: R53.1 Weakness (principal); I97.190 Other postprocedural cardiac functional disturbances following cardiac surgery; I48.91 Unspecified atrial fibrillation; G47.00 Insomnia, unspecified; I11.0 Hypertensive heart disease with heart failure; I50.9 Heart failure, unspecified; Z95.0 Presence of cardiac pacemaker; Z60.2 Problems related to living alone; Z79.899 Other long term (current) drug therapy
CPT/HCPCS: 36415; 71045; 80053; 83605; 83735; 83880; 84145; 84484; 85025; 87040; 93005; 96360; 99285; J7030

== ENCOUNTER 2020-05-06 07:21 | Emergency (ER) | payer MEDICARE, OTHER ==
[~2020-05-06] VITALS: Ht 172.7 cm; Wt 100.0 kg
[2020-05-06] MEDS ORDERED: LORA-268 PO (07:25)
--- NOTE | 2020-05-06 07:31 | NUR ---
PT STATES, HEART IS WORKING AT 40%.
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
--- NOTE | 2020-05-06 07:50 | NUR ---
PT STATES, I STARTED A NW DEPRESSION MEDICATION BUT I DONT REMEMBER THE NAME
[2020-05-06 08:15] LABS: EOSINOPHILS # (AUTO) 0.1 X10'3 (0-0.9); HEMOGLOBIN 15.8 g/dl (14.0-17.9); LYMPHOCYTES # (AUTO) 0.7 X10'3 (1.1-4.8); MEAN CORPUSCULAR HEMOGLOBIN 28.1 PG (27.0-31.0); NEUTROPHILS # (AUTO) 3.9 X10'3 (1.8-7.7); WHITE BLOOD COUNT 5.4 X10'3 (4.5-11.0)
[2020-05-06 08:18] LABS: BASOPHILS % (AUTO) 0.6 % (0-1); HEMATOCRIT 48.3 % (42.0-52.0); LYMPHOCYTES % (AUTO) 12.8 % (21-51); MEAN CORPUSCULAR HGB CONC 32.7 g/dL (33.0-36.5); MEAN PLATELET VOLUME 12.8 FL (7.4-10.4); MONOCYTES # (AUTO) 0.6 X10'3 (0-0.9); MONOCYTES % (AUTO) 11.6 % (2-12); PLATELET COUNT 96 X10'3 (140-440); RED BLOOD COUNT 5.62 X10'6 (4.70-6.10); RED CELL DISTRIBUTION WIDTH 16.4 % (11.5-14.5)
[2020-05-06 08:25] LABS: ABG BASE EXCESS -3.6 mmol/L (-2.0-2.0); ABG HCO3 22.8 mmol/L (22.0-26.0); ABG OXYGEN SATURATION 93.2 % (94-97); ABG PCO2 (T) 45.5 mmHg (35.0-48.0); ABG PO2 (T) 66.5 mmHg (75.0-100.0); ALLEN'S TEST POSITIVE; FCOHb 1.3 % (0.0-3.9); FMetHb 0.2 % (0.0-1.5); FO2Hb 91.8 % (94-97); TOTAL HEMOGLOBIN 16.2 G/dl (14.0-18.0)
[2020-05-06 08:27] LABS: PARTIAL THROMBOPLASTIN TIME 32 SECONDS (22-32)
[2020-05-06 08:28] LABS: ALANINE AMINOTRANSFERASE 36 U/L (12-78); ALBUMIN 3.4 G/DL (3.4-5.0); ALKALINE PHOSPHATASE 87 IU/L (46-116); ANION GAP 10 (8-16); ASPARTATE AMINO TRANSFERASE 21 U/L (10-37); BILIRUBIN,TOTAL 1.5 MG/DL (0.1-1.0); BLOOD UREA NITROGEN 24 MG/DL (7-18); BUN/CREATININE RATIO 21.2 (5.4-32.0); CHLORIDE 105 MMOL/L (99-107); CREATININE 1.13 MG/DL (0.60-1.10); D-DIMER < 0.19 MG/L FEU (0-0.50); GLUCOSE 124 MG/DL (70-104); POTASSIUM 3.9 MMOL/L (3.5-5.1); SODIUM 140 MMOL/L (135-145); TOTAL CARBON DIOXIDE 24.6 MMOL/L (24-32); TOTAL PROTEIN 6.9 G/DL (6.4-8.2); eGFR 63 ML/MIN
[2020-05-06 08:34] LABS: LARGE PLATELETS FEW; PLATELET ESTIMATE DECREASED
[2020-05-06 08:35] LABS: ANISOCYTOSIS 1+; BURR CELLS FEW; ELLIPTOCYTES FEW; GIANT PLATELET FEW
[2020-05-06 08:41] LABS: FERRITIN 35 NG/ML (26-388); LACTATE DEHYDROGENASE 144 U/L (85-227)
[2020-05-06 09:40] VITALS: BP 106/69
--- NOTE | 2020-05-06 09:45 | NUR ---
[employer] [facility] called for pt, [place] [id number] [facility]
== END 2020-05-06 09:53 | disposition home or self-care (01) ==
LOC: ER 07:21
DX: F41.9 Anxiety disorder, unspecified (principal); I13.0 Hypertensive heart and chronic kidney disease with heart failure and stage 1 through stage 4 chronic kidney disease, or unspecified chronic kidney disease; N18.9 Chronic kidney disease, unspecified; R11.0 Nausea; R42 Dizziness and giddiness; Z95.0 Presence of cardiac pacemaker; Z98.890 Other specified postprocedural states; Z72.89 Other problems related to lifestyle; Z60.2 Problems related to living alone; Z79.899 Other long term (current) drug therapy
CPT/HCPCS: 36415; 36600; 71045; 80053; 82728; 82803; 83615; 83880; 84145; 84484; 85008; 85018; 85025; 85379; 85384; 85610; 85730; 86140; 93005; 99285

== ENCOUNTER 2020-05-21 03:14 | Emergency (ER) | payer MEDICARE, OTHER ==
[~2020-05-21] VITALS: Ht 175.3 cm; Wt 96.4 kg
[~2020-05-21 03:14] MED LIST changes: +ALPR-149 PO; -CARV12.545 PO; +CARV6.253 PO; -SIMV-45; +SIMV-45 PO
[2020-05-21 03:17] VITALS: BP 123/86
[2020-05-21 03:45] LABS: CLARITY,URINE CLOUDY (Clear); COLOR,URINE YELLOW (Yellow); GLUCOSE, URINE NEGATIVE (Neg); KETONES,URINE NEGATIVE (Neg); LEUKOCYTE ESTERASE ,URINE LARGE (Neg); NITRITES, URINE NEGATIVE (Neg); OCCULT BLOOD,URINE LARGE (Neg); PH,URINE 7.5 (4.8-8.0); PROTEIN,URINE 100 mg/dl (Neg)
[2020-05-21 03:56] LABS: UA COLLECTION TYPE CLN CATCH MIDSTREAM; WBC,URINE 50-100 /HPF (0-4)
[2020-05-21 03:57] LABS: BACTERIA,URINE FEW /HPF (Neg); SQUAMOUS EPITHELIAL CELL,UR FEW /LPF (FEW); WBC CLUMPS,URINE MODERATE /HPF (NEGATIVE)
[2020-05-21] MEDS ORDERED: LIDOcaine 2% 10ml TOPICAL JELLY (Urojet) MM ONE (04:25)
[2020-05-21] MEDS ORDERED: ciprofloxacin 250mg tablet PO ONE (04:25)
[2020-05-21] MEDS ORDERED: LIDOcaine 2% 10ml TOPICAL JELLY (Urojet) TP ONE (04:25)
[2020-05-21] MEDS ORDERED: CIPR-260 PO (04:26)
== END 2020-05-21 05:14 | disposition home or self-care (01) ==
LOC: ER 03:15
DX: N13.9 Obstructive and reflux uropathy, unspecified (principal); N39.0 Urinary tract infection, site not specified; I50.9 Heart failure, unspecified; I11.0 Hypertensive heart disease with heart failure; Z98.890 Other specified postprocedural states; Z95.0 Presence of cardiac pacemaker; Z72.89 Other problems related to lifestyle; Z60.9 Problem related to social environment, unspecified; Z79.2 Long term (current) use of antibiotics; Z79.899 Other long term (current) drug therapy
CPT/HCPCS: 51702; 81001; 87077; 87088; 87186; 99284

== ENCOUNTER 2020-05-22 22:31 | Emergency (ER) | payer MEDICARE, OTHER ==
[~2020-05-22] VITALS: Ht 172.7 cm; Wt 100.0 kg
[~2020-05-22 22:31] MED LIST changes: +CIPR-260 PO
--- NOTE | 2020-05-22 23:27 | NUR ---
Dr. Olmedo advised to fill patients bladder with saline, remove catheter, then see if pt can void the saline. Pt advised and understands that another catheter may need to be put in if he cannot void.
--- NOTE | 2020-05-23 00:08 | NUR ---
Pt's carter catheter irrigated with 100 cc's ns. 100 cc's nx flushed into the catheter then catheter removed and intact. Pt given water. requests that Pts voids some before discharge.
--- NOTE | 2020-05-23 01:00 | NUR ---
Pt with no void. Macdonald replaced to instill 400 cc's NS and removed. Pt able to void over the past 1/2 hr. Bladder scanned with no residual. Dr. Reza updated and Pt prepared for discharged.
[2020-05-23 01:39] VITALS: BP 105/76
== END 2020-05-23 01:41 | disposition home or self-care (01) ==
LOC: ER 22:31
DX: Z46.6 Encounter for fitting and adjustment of urinary device (principal); N48.89 Other specified disorders of penis; I11.0 Hypertensive heart disease with heart failure; I50.9 Heart failure, unspecified; Z98.890 Other specified postprocedural states; Z95.0 Presence of cardiac pacemaker; Z60.2 Problems related to living alone; Z79.01 Long term (current) use of anticoagulants; Z79.899 Other long term (current) drug therapy
CPT/HCPCS: 99284

== ENCOUNTER 2020-07-13 23:34 | Emergency (ER) | payer MEDICARE, OTHER ==
[~2020-07-13] VITALS: Ht 172.7 cm; Wt 100.0 kg
[2020-07-13] MEDS ORDERED: normal saline 1000ML IV soln IVB ONE (23:40)
[2020-07-13] MEDS ORDERED: normal saline 1000ml 1,000 ML IV ONE (23:40)
--- NOTE | 2020-07-14 00:05 | NUR ---
PT AMBULATED UP TO BATHROOM AND WALKED WITH MINIMAL ASSISTANCE. VERBALIZED TO USE CALL CORMIER FOR ASSISTANCE WHEN DONE
[2020-07-14 00:20] LABS: EOSINOPHILS # (AUTO) 0.1 X10'3 (0-0.9); LYMPHOCYTES # (AUTO) 0.6 X10'3 (1.1-4.8); MEAN CORPUSCULAR HEMOGLOBIN 27.6 PG (27.0-31.0); MEAN CORPUSCULAR HGB CONC 32.5 g/dL (33.0-36.5); MONOCYTES # (AUTO) 0.8 X10'3 (0-0.9)
[2020-07-14 00:26] LABS: PARTIAL THROMBOPLASTIN TIME 31 SECONDS (22-32)
[2020-07-14 00:30] LABS: ALANINE AMINOTRANSFERASE 28 U/L (12-78); ALBUMIN 3.8 G/DL (3.4-5.0); ALKALINE PHOSPHATASE 87 IU/L (46-116); ANION GAP 9 (8-16); ASPARTATE AMINO TRANSFERASE 18 U/L (10-37); BILIRUBIN,TOTAL 1.6 MG/DL (0.1-1.0); BLOOD UREA NITROGEN 23 MG/DL (7-18); BUN/CREATININE RATIO 20.4 (5.4-32.0); C-REACTIVE PROTEIN 1.18 MG/DL (0.0-0.5); CALCIUM 9.6 MG/DL (8.5-10.1); CHLORIDE 99 MMOL/L (99-107); CREATININE 1.13 MG/DL (0.60-1.10); GLUCOSE 152 MG/DL (70-104); SODIUM 133 MMOL/L (135-145); TOTAL CARBON DIOXIDE 24.8 MMOL/L (24-32); TOTAL PROTEIN 7.6 G/DL (6.4-8.2); eGFR 63 ML/MIN
[2020-07-14 00:46] LABS: HEMATOCRIT 49.5 % (42.0-52.0); HEMOGLOBIN 16.1 g/dl (14.0-17.9); MEAN CORPUSCULAR VOLUME 85.1 FL (78-98); RED BLOOD COUNT 5.82 X10'6 (4.70-6.10); RED CELL DISTRIBUTION WIDTH 19.9 % (11.5-14.5); WHITE BLOOD COUNT 8.4 X10'3 (4.5-11.0)
[2020-07-14 00:47] LABS: BASOPHILS % (AUTO) 0.5 % (0-1); EOSINOPHILS % (AUTO) 1.4 % (0-6); LYMPHOCYTES % (AUTO) 6.6 % (21-51); MEAN PLATELET VOLUME 11.8 FL (7.4-10.4); MONOCYTES % (AUTO) 9.8 % (2-12); NEUTROPHILS # (AUTO) 6.8 X10'3 (1.8-7.7); NEUTROPHILS % (AUTO) 81.7 % (42-75); PLATELET COUNT 94 X10'3 (140-440)
[2020-07-14 00:52] LABS: D-DIMER < 0.19 MG/L FEU (0-0.50)
[2020-07-14 00:58] LABS: ANISOCYTOSIS 2+; LARGE PLATELETS MODERATE; PLATELET ESTIMATE DECREASED; TOTAL CELLS COUNTED 100
[2020-07-14 00:59] LABS: SPHEROCYTES 2+
[2020-07-14] MEDS ORDERED: dexamethasone sod phosphate 10mg/ml inj PO STA (01:25)
[2020-07-14] MEDS ORDERED: diphenhydrAMINE 25 MG/10 ML UD oral solution PO ONE (01:25)
[2020-07-14 02:13] VITALS: BP 113/79
== END 2020-07-14 02:15 | disposition home or self-care (01) ==
LOC: ER 23:35
DX: J06.9 Acute upper respiratory infection, unspecified (principal); Z20.822 Contact with and (suspected) exposure to COVID-19; B97.89 Other viral agents as the cause of diseases classified elsewhere; I48.91 Unspecified atrial fibrillation; I50.9 Heart failure, unspecified; I11.0 Hypertensive heart disease with heart failure; Z95.0 Presence of cardiac pacemaker; Z79.2 Long term (current) use of antibiotics; Z79.899 Other long term (current) drug therapy
CPT/HCPCS: 36415; 71045; 80053; 83605; 84145; 84484; 85007; 85025; 85379; 85610; 85730; 86140; 87040; 87502; 87503; 87635; 93005; 96360; 96361; 99285; C9803; J1100; J7030; Q0163

== ENCOUNTER 2020-09-03 23:32 | Emergency (ER) | payer MEDICARE, OTHER ==
[~2020-09-03] VITALS: Ht 172.7 cm; Wt 100.0 kg
[~2020-09-03 23:32] MED LIST changes: +BENA10TA75 PO; -BENA20TA82 PO; -CIPR-260 PO; -FLO0.4C PO; -FURO-150 PO; +FURO20TA4 PO
--- NOTE | 2020-09-03 23:45 | NUR ---
PATIENT CLOSES HIS EYES AND BERATHES RAPIDLY AND SHALLOW USING HIS ABDOMEN
[2020-09-04 01:47] LABS: BASOPHILS # (AUTO) 0.1 X10'3 (0-0.2); EOSINOPHILS # (AUTO) 0.1 X10'3 (0-0.9); MEAN CORPUSCULAR HEMOGLOBIN 28.6 PG (27.0-31.0); MEAN CORPUSCULAR HGB CONC 32.8 g/dL (33.0-36.5); MONOCYTES # (AUTO) 0.7 X10'3 (0-0.9); RED CELL DISTRIBUTION WIDTH 18.3 % (11.5-14.5); WHITE BLOOD COUNT 7.2 X10'3 (4.5-11.0)
[2020-09-04 01:48] LABS: BASOPHILS % (AUTO) 0.9 % (0-1); HEMATOCRIT 50.8 % (42.0-52.0); HEMOGLOBIN 16.7 g/dl (14.0-17.9); LYMPHOCYTES # (AUTO) 1.1 X10'3 (1.1-4.8); LYMPHOCYTES % (AUTO) 14.8 % (21-51); MEAN CORPUSCULAR VOLUME 87.1 FL (78-98); MEAN PLATELET VOLUME 11.8 FL (7.4-10.4); MONOCYTES % (AUTO) 9.4 % (2-12); NEUTROPHILS # (AUTO) 5.2 X10'3 (1.8-7.7); NEUTROPHILS % (AUTO) 72.9 % (42-75); PLATELET COUNT 97 X10'3 (140-440); RED BLOOD COUNT 5.83 X10'6 (4.70-6.10)
[2020-09-04 02:06] LABS: ALANINE AMINOTRANSFERASE 37 U/L (12-78); ALBUMIN 3.6 G/DL (3.4-5.0); ALKALINE PHOSPHATASE 96 IU/L (46-116); ANION GAP 9 (8-16); ASPARTATE AMINO TRANSFERASE 25 U/L (10-37); BILIRUBIN,TOTAL 1.4 MG/DL (0.1-1.0); BLOOD UREA NITROGEN 23 MG/DL (7-18); CHLORIDE 106 MMOL/L (99-107); GLUCOSE 131 MG/DL (70-104); MAGNESIUM 2.1 MG/DL (1.5-2.4); POTASSIUM 4.3 MMOL/L (3.5-5.1); SODIUM 141 MMOL/L (135-145); TOTAL CARBON DIOXIDE 26.1 MMOL/L (24-32); TOTAL PROTEIN 7.2 G/DL (6.4-8.2)
[2020-09-04 02:11] LABS: BUN/CREATININE RATIO 19.5 (5.4-32.0); CALCIUM 9.7 MG/DL (8.5-10.1); CREATININE 1.18 MG/DL (0.60-1.10); eGFR 60 ML/MIN
[2020-09-04] MEDS ORDERED: LORazepam 2 mg/ml vial IV ONE (02:25)
[2020-09-04 03:02] LABS: ANISOCYTOSIS 2+
[2020-09-04 03:03] LABS: LARGE PLATELETS MODERATE; PLATELET ESTIMATE DECREASED
[2020-09-04] MEDS ORDERED: furosemide 10 MG/1 ML 10ml inj IV ONE (04:25)
[2020-09-04] MEDS ORDERED: LORA-269 PO (04:25)
[2020-09-04] MEDS ORDERED: LORazepam 1 MG tablet PO ONE (04:25)
[2020-09-04 05:26] VITALS: BP 124/97
== END 2020-09-04 05:33 | disposition home or self-care (01) ==
LOC: ER 23:32
DX: G47.00 Insomnia, unspecified (principal); Z20.822 Contact with and (suspected) exposure to COVID-19; R06.02 Shortness of breath; I48.91 Unspecified atrial fibrillation; I11.0 Hypertensive heart disease with heart failure; I50.9 Heart failure, unspecified; F41.9 Anxiety disorder, unspecified; F32.9 Major depressive disorder, single episode, unspecified; Z98.890 Other specified postprocedural states; Z95.0 Presence of cardiac pacemaker; Z72.89 Other problems related to lifestyle; Z60.2 Problems related to living alone; Z79.01 Long term (current) use of anticoagulants; Z79.899 Other long term (current) drug therapy
CPT/HCPCS: 36415; 71045; 80053; 83735; 83880; 84145; 84484; 85008; 85025; 87635; 93005; 96374; 96375; 99285; C9803; J1940; J2060

== ENCOUNTER 2020-09-19 12:10 | Emergency (ER) | payer MEDICARE, OTHER ==
[~2020-09-19] VITALS: Ht 172.7 cm; Wt 97.8 kg
[~2020-09-19 12:10] MED LIST changes: +LORA-269 PO
[2020-09-19 14:15] VITALS: BP 130/92
[2020-09-19 14:56] LABS: ALANINE AMINOTRANSFERASE 40 U/L (12-78); ALBUMIN 3.5 G/DL (3.4-5.0); ALKALINE PHOSPHATASE 86 IU/L (46-116); ANION GAP 13 (8-16); ASPARTATE AMINO TRANSFERASE 25 U/L (10-37); BILIRUBIN,TOTAL 2.5 MG/DL (0.1-1.0); BLOOD UREA NITROGEN 29 MG/DL (7-18); BUN/CREATININE RATIO 27.9 (5.4-32.0); CHLORIDE 104 MMOL/L (99-107); CREATININE 1.04 MG/DL (0.60-1.10); GLUCOSE 128 MG/DL (70-104); POTASSIUM 4.1 MMOL/L (3.5-5.1); SODIUM 139 MMOL/L (135-145); TOTAL CARBON DIOXIDE 22.1 MMOL/L (24-32); TOTAL PROTEIN 7.1 G/DL (6.4-8.2); eGFR 69 ML/MIN
[2020-09-19] MEDS ORDERED: furosemide 10 MG/1 ML 10ml inj IV ONE (15:15)
[2020-09-19 15:22] LABS: EOSINOPHILS # (AUTO) 0.2 X10'3 (0-0.9); EOSINOPHILS % (AUTO) 2.2 % (0-6); HEMOGLOBIN 17.1 g/dl (14.0-17.9); LYMPHOCYTES # (AUTO) 0.9 X10'3 (1.1-4.8)
[2020-09-19 15:24] LABS: BASOPHILS # (AUTO) 0.1 X10'3 (0-0.2); BASOPHILS % (AUTO) 0.8 % (0-1); HEMATOCRIT 52.3 % (42.0-52.0); LYMPHOCYTES % (AUTO) 11.9 % (21-51); MEAN CORPUSCULAR HEMOGLOBIN 28.7 PG (27.0-31.0); MEAN CORPUSCULAR HGB CONC 32.7 g/dL (33.0-36.5); MEAN CORPUSCULAR VOLUME 87.7 FL (78-98); NEUTROPHILS # (AUTO) 5.2 X10'3 (1.8-7.7); NEUTROPHILS % (AUTO) 71.1 % (42-75); PLATELET COUNT 93 X10'3 (140-440); RED BLOOD COUNT 5.97 X10'6 (4.70-6.10); RED CELL DISTRIBUTION WIDTH 17.7 % (11.5-14.5); WHITE BLOOD COUNT 7.3 X10'3 (4.5-11.0)
[2020-09-19 16:01] LABS: LARGE PLATELETS FEW; PLATELET ESTIMATE DECREASED
[2020-09-19 16:03] LABS: ANISOCYTOSIS 1+; BURR CELLS FEW; ELLIPTOCYTES FEW; POLYCHROMASIA FEW
[2020-09-19 16:04] LABS: GIANT PLATELET FEW
== END 2020-09-19 16:00 | disposition home or self-care (01) ==
LOC: ER 12:10
DX: R06.02 Shortness of breath (principal); I50.9 Heart failure, unspecified; I11.0 Hypertensive heart disease with heart failure; I48.91 Unspecified atrial fibrillation; Z72.89 Other problems related to lifestyle; Z95.5 Presence of coronary angioplasty implant and graft; Z98.890 Other specified postprocedural states; Z79.899 Other long term (current) drug therapy
CPT/HCPCS: 36415; 71045; 80053; 83880; 84484; 85008; 85025; 93005; 99285

== ENCOUNTER 2020-09-24 05:05 | Emergency (ER) | payer MEDICARE, OTHER ==
[~2020-09-24] VITALS: Ht 172.7 cm; Wt 98.7 kg
[2020-09-24 05:23] VITALS: BP 121/96
[2020-09-24] MEDS ORDERED: ZOLP5TAB8 PO (05:51)
== END 2020-09-24 06:07 | disposition home or self-care (01) ==
LOC: ER 05:06
DX: G47.00 Insomnia, unspecified (principal); I11.9 Hypertensive heart disease without heart failure; F41.9 Anxiety disorder, unspecified; F32.9 Major depressive disorder, single episode, unspecified; Z79.899 Other long term (current) drug therapy
CPT/HCPCS: 99283

== ENCOUNTER 2020-10-22 18:58 | Emergency (ER) | payer MEDICARE, OTHER ==
[~2020-10-22] VITALS: Ht 172.7 cm; Wt 100.0 kg
[2020-10-22 19:58] LABS: ANION GAP 13 (8-16); BLOOD UREA NITROGEN 25 MG/DL (7-18); BUN/CREATININE RATIO 18.4 (5.4-32.0); CALCIUM 8.7 MG/DL (8.5-10.1); CHLORIDE 103 MMOL/L (99-107); CREATININE 1.36 MG/DL (0.60-1.10); GLUCOSE 115 MG/DL (70-104); POTASSIUM 4.6 MMOL/L (3.5-5.1); SODIUM 137 MMOL/L (135-145); TOTAL CARBON DIOXIDE 21.1 MMOL/L (24-32); eGFR 51 ML/MIN
[2020-10-22 19:59] LABS: ALANINE AMINOTRANSFERASE 29 U/L (12-78); ALBUMIN/GLOBULIN RATIO 0.9 (1.1-1.5); ALKALINE PHOSPHATASE 88 IU/L (46-116); ASPARTATE AMINO TRANSFERASE 19 U/L (10-37); BILIRUBIN,TOTAL 1.7 MG/DL (0.1-1.0); TOTAL PROTEIN 6.4 G/DL (6.4-8.2)
--- NOTE | 2020-10-22 20:05 | NUR ---
BLOOD REDRAWN WITH NEW IV START
[2020-10-22 20:13] LABS: BASOPHILS # (AUTO) 0.1 X10'3 (0-0.2); HEMOGLOBIN 16.7 g/dl (14.0-17.9); MEAN CORPUSCULAR HGB CONC 32.7 g/dL (33.0-36.5); MONOCYTES # (AUTO) 0.7 X10'3 (0-0.9); NEUTROPHILS # (AUTO) 4.3 X10'3 (1.8-7.7); WHITE BLOOD COUNT 5.9 X10'3 (4.5-11.0)
[2020-10-22 20:15] LABS: BASOPHILS % (AUTO) 0.9 % (0-1); EOSINOPHILS # (AUTO) 0.1 X10'3 (0-0.9); EOSINOPHILS % (AUTO) 2.3 % (0-6); HEMATOCRIT 51.1 % (42.0-52.0); LYMPHOCYTES # (AUTO) 0.7 X10'3 (1.1-4.8); LYMPHOCYTES % (AUTO) 12.1 % (21-51); MEAN CORPUSCULAR HEMOGLOBIN 27.9 PG (27.0-31.0); MEAN CORPUSCULAR VOLUME 85.5 FL (78-98); MEAN PLATELET VOLUME 12.1 FL (7.4-10.4); MONOCYTES % (AUTO) 12.5 % (2-12); NEUTROPHILS % (AUTO) 72.2 % (42-75); PLATELET COUNT 92 X10'3 (140-440); RED BLOOD COUNT 5.98 X10'6 (4.70-6.10); RED CELL DISTRIBUTION WIDTH 17.1 % (11.5-14.5)
[2020-10-22 21:06] LABS: ANISOCYTOSIS 1+; LARGE PLATELETS MODERATE; PLATELET ESTIMATE DECREASED
[2020-10-22 21:20] LABS: CLARITY,URINE CLEAR (Clear); COLOR,URINE AMBER (Yellow); GLUCOSE, URINE NEGATIVE (Neg); KETONES,URINE TRACE mg/dl (Neg); LEUKOCYTE ESTERASE ,URINE NEGATIVE (Neg); NITRITES, URINE NEGATIVE (Neg); OCCULT BLOOD,URINE NEGATIVE (Neg); PH,URINE 5.5 (4.8-8.0); PROTEIN,URINE 30 mg/dl (Neg); UA COLLECTION TYPE URINAL
[2020-10-22 21:31] LABS: BACTERIA,URINE NONE SEEN /HPF (Neg); MUCUS STRANDS MANY /LPF (Neg); RBC,URINE NONE SEEN /HPF (0-2); SQUAMOUS EPITHELIAL CELL,UR FEW /LPF (FEW); WBC,URINE 0-4 /HPF (0-4)
[2020-10-22 21:59] VITALS: BP 100/74
== END 2020-10-22 22:11 | disposition home or self-care (01) ==
LOC: ER 18:59
DX: R53.1 Weakness (principal); R53.83 Other fatigue; R11.0 Nausea; I48.91 Unspecified atrial fibrillation; I50.9 Heart failure, unspecified; I11.0 Hypertensive heart disease with heart failure; Z95.0 Presence of cardiac pacemaker; Z72.89 Other problems related to lifestyle; Z79.899 Other long term (current) drug therapy; Z92.29 Personal history of other drug therapy; W18.30XA Fall on same level, unspecified, initial encounter; W22.01XA Walked into wall, initial encounter; S09.8XXA Other specified injuries of head, initial encounter; Y92.008 Other place in unspecified non-institutional (private) residence as the place of occurrence of the external cause; J98.11 Atelectasis
CPT/HCPCS: 36415; 70450; 71045; 80053; 81001; 83880; 84484; 85008; 85025; 93005; 99285

== ENCOUNTER 2021-01-01 22:15 | Inpatient (IN) | payer MEDICARE, OTHER ==
[~2021-01-01] VITALS: Ht 172.7 cm; Wt 97.2 kg
[2021-01-01] MEDS ORDERED: normal saline 500ml IV soln 500 ML IV ONE (22:45)
[2021-01-01 23:17] LABS: EOSINOPHILS # (AUTO) 0.1 X10'3 (0-0.9); WHITE BLOOD COUNT 3.8 X10'3 (4.5-11.0)
[2021-01-01 23:20] LABS: BASOPHILS % (AUTO) 1.2 % (0-1); EOSINOPHILS % (AUTO) 3.2 % (0-6); HEMOGLOBIN 13.9 g/dl (14.0-17.9); LYMPHOCYTES # (AUTO) 0.6 X10'3 (1.1-4.8); LYMPHOCYTES % (AUTO) 15.8 % (21-51); MEAN CORPUSCULAR HEMOGLOBIN 27.1 PG (27.0-31.0); MEAN CORPUSCULAR HGB CONC 32.3 g/dL (33.0-36.5); MEAN CORPUSCULAR VOLUME 84.1 FL (78-98); MEAN PLATELET VOLUME 12.1 FL (7.4-10.4); MONOCYTES # (AUTO) 0.5 X10'3 (0-0.9); MONOCYTES % (AUTO) 13.9 % (2-12); NEUTROPHILS # (AUTO) 2.5 X10'3 (1.8-7.7); NEUTROPHILS % (AUTO) 65.9 % (42-75); PLATELET COUNT 84 X10'3 (140-440); RED BLOOD COUNT 5.12 X10'6 (4.70-6.10); RED CELL DISTRIBUTION WIDTH 20.6 % (11.5-14.5)
[2021-01-01 23:37] LABS: ALANINE AMINOTRANSFERASE 35 U/L (12-78); ALBUMIN 2.9 G/DL (3.4-5.0); ALBUMIN/GLOBULIN RATIO 0.9 (1.1-1.5); ALKALINE PHOSPHATASE 175 IU/L (46-116); ANION GAP 7 (8-16); ASPARTATE AMINO TRANSFERASE 33 U/L (10-37); BLOOD UREA NITROGEN 42 MG/DL (7-18); BUN/CREATININE RATIO 29.6 (5.4-32.0); CALCIUM 8.5 MG/DL (8.5-10.1); CHLORIDE 107 MMOL/L (99-107); CREATININE 1.42 MG/DL (0.60-1.10); GLUCOSE 104 MG/DL (70-104); POTASSIUM 4.3 MMOL/L (3.5-5.1); SODIUM 140 MMOL/L (135-145); TOTAL PROTEIN 6.2 G/DL (6.4-8.2); eGFR 48 ML/MIN
[2021-01-01 23:50] LABS: LARGE PLATELETS MODERATE; PLATELET ESTIMATE DECREASED
[2021-01-01 23:51] LABS: ANISOCYTOSIS 3+; SPHEROCYTES FEW
[2021-01-01 23:55] LABS: ELLIPTOCYTES FEW; POIKILOCYTOSIS FEW; TARGET CELLS FEW
[2021-01-01 23:59] LABS: ETHANOL < 0.010 GM/DL (0.0-0.010)
[2021-01-02] MEDS ORDERED: acetaminophen 325mg tablet PO PRN ×2 (00:45)
[2021-01-02] MEDS ORDERED: magnesium Cl slow-release 64mg tablet PO PRN (00:45)
[2021-01-02] MEDS ORDERED: potassium Cl 20 mEq SR tablet PO PRN ×2 (00:45)
[2021-01-02] MEDS ORDERED: magnesium 4gm in 100ml NS 100 ML IV PRN (00:45)
[2021-01-02] MEDS ORDERED: magnesium 2GM in 50ml NS 50 ML IV PRN (00:45)
[2021-01-02] MEDS ORDERED: potassium Cl 40MEQ/1/2NS 520ml 520 ML IV PRN ×2 (00:45)
[2021-01-02] MEDS ORDERED: ondansetron/PF 4mg/2ml inj IV PRN (00:45)
[2021-01-02] MEDS: normal saline 1000ml 1,000 ML IV SCH (01:58)
[2021-01-02 02:46] LABS: CLARITY,URINE CLEAR (Clear); GLUCOSE, URINE NEGATIVE (Neg); KETONES,URINE NEGATIVE (Neg); LEUKOCYTE ESTERASE ,URINE NEGATIVE (Neg); NITRITES, URINE NEGATIVE (Neg); OCCULT BLOOD,URINE NEGATIVE (Neg); PH,URINE 5.5 (4.8-8.0); PROTEIN,URINE NEGATIVE (Neg)
[2021-01-02 02:56] LABS: COLOR,URINE DARK YELLOW (Yellow); UA COLLECTION TYPE URINAL
--- NOTE | 2021-01-02 03:09 | NUR ---
Patient sitting on side of bed per request. Has been able to use urinal independently.
[2021-01-02] MEDS ORDERED: BUPR-317 PO (06:23)
[2021-01-02] MEDS ORDERED: ALLO300T8 PO (06:24)
[2021-01-02] MEDS ORDERED: POTA8CAP20 PO (06:24)
[2021-01-02] MEDS ORDERED: ARIP5TAB60 PO (06:26)
[2021-01-02] MEDS ORDERED: PERFLUTREN PROTEIN-A MICROSPHR (Optison) 0.22 MG/ML 3ML VIAL IV ONE (08:00)
--- NOTE | 2021-01-02 08:14 | NUR ---
Patient sitting on side of bed to eat breakfast.
[2021-01-02] MEDS: K and/or MAG REPLACEMENT MC SCH ×2 (08:30→20:00)
[2021-01-02] MEDS: celeCOXIB 100mg capsule PO SCH (08:50)
[2021-01-02] MEDS: busPIRone 5mg tablet PO SCH (09:22)
[2021-01-02] MEDS: apixaban 5mg tablet PO SCH ×2 (09:22→20:49)
[2021-01-02] MEDS: buPROPion SR 150mg tablet PO SCH (09:22)
[2021-01-02] MEDS: carvedilol 6.25mg tablet PO SCH ×2 (09:22→20:49)
[2021-01-02] MEDS: furosemide 20MG tablet PO SCH ×2 (09:22→20:49)
[2021-01-02] MEDS: lisinopril 10 MG tablet PO SCH ×2 (09:23→20:49)
[2021-01-02] MEDS: aripiprazole 5mg tablet PO SCH (09:23)
[2021-01-02] MEDS: spironolactone 25 MG tablet PO SCH (09:23)
--- NOTE | 2021-01-02 09:57 | NUR ---
POA updated on phone
--- NOTE | 2021-01-02 11:34 | NUR ---
FAMILY AT BEDSIDE. EXPRESSING CONCERNS ABOUT PATIENT RETURNING TO SAME LIVING SITUATION. BLOOD BANK WORKER CONSULT REQUESTED. POA: MADELINE WASSERMAN [phone]
[2021-01-02] MEDS: potassium chloride 8mEq ER tablet PO SCH (11:45)
[2021-01-02 12:15] VITALS: BP 105/71
[2021-01-02] MEDS: allopurinol 300 MG tablet PO SCH (14:57)
[2021-01-02 15:00] VITALS: BP 95/61
--- NOTE | 2021-01-02 18:33 | NUR ---
Problems reprioritized. Patient report given, questions answered & plan of care reviewed with Becky LUONG.
[2021-01-02 19:00] VITALS: BP 102/67
[2021-01-02] MEDS: atorvastatin 20mg tablet PO SCH (20:49)
[2021-01-02 23:00] VITALS: BP 109/76
[2021-01-03 03:00] VITALS: BP 107/73
[2021-01-03 06:21] LABS: ALANINE AMINOTRANSFERASE 42 U/L (12-78); ALBUMIN 3.2 G/DL (3.4-5.0); ALBUMIN/GLOBULIN RATIO 0.9 (1.1-1.5); ALKALINE PHOSPHATASE 205 IU/L (46-116); ANION GAP 9 (8-16); ASPARTATE AMINO TRANSFERASE 35 U/L (10-37); BILIRUBIN,TOTAL 1.2 MG/DL (0.1-1.0); BLOOD UREA NITROGEN 33 MG/DL (7-18); BUN/CREATININE RATIO 26.6 (5.4-32.0); CALCIUM 9.3 MG/DL (8.5-10.1); CHLORIDE 103 MMOL/L (99-107); CREATININE 1.24 MG/DL (0.60-1.10); GLUCOSE 106 MG/DL (70-104); MAGNESIUM 2.4 MG/DL (1.5-2.4); POTASSIUM 4.8 MMOL/L (3.5-5.1); SODIUM 138 MMOL/L (135-145); TOTAL PROTEIN 6.8 G/DL (6.4-8.2); eGFR 57 ML/MIN
--- NOTE | 2021-01-03 06:38 | NUR ---
Patient in room PCU 3014. I have received report from CHERISE Pena and had the opportunity to ask questions and assume patient care.
[2021-01-03 07:00] VITALS: BP 116/79
[2021-01-03] MEDS: K and/or MAG REPLACEMENT MC SCH ×2 (08:00→20:00)
[2021-01-03 08:48] LABS: BASOPHILS # (AUTO) 0.1 X10'3 (0-0.2); EOSINOPHILS # (AUTO) 0.1 X10'3 (0-0.9); LYMPHOCYTES # (AUTO) 0.5 X10'3 (1.1-4.8); LYMPHOCYTES % (AUTO) 11.6 % (21-51); MONOCYTES # (AUTO) 0.5 X10'3 (0-0.9); NEUTROPHILS # (AUTO) 3.3 X10'3 (1.8-7.7)
[2021-01-03 08:50] LABS: BASOPHILS % (AUTO) 1.2 % (0-1); EOSINOPHILS % (AUTO) 2.7 % (0-6); HEMATOCRIT 46.1 % (42.0-52.0); HEMOGLOBIN 14.8 g/dl (14.0-17.9); MEAN CORPUSCULAR HEMOGLOBIN 26.5 PG (27.0-31.0); MEAN CORPUSCULAR HGB CONC 32.2 g/dL (33.0-36.5); MEAN CORPUSCULAR VOLUME 82.4 FL (78-98); MEAN PLATELET VOLUME 12.3 FL (7.4-10.4); MONOCYTES % (AUTO) 11.4 % (2-12); NEUTROPHILS % (AUTO) 73.1 % (42-75); RED BLOOD COUNT 5.59 X10'6 (4.70-6.10); RED CELL DISTRIBUTION WIDTH 21.4 % (11.5-14.5); WHITE BLOOD COUNT 4.5 X10'3 (4.5-11.0)
[2021-01-03] MEDS: apixaban 5mg tablet PO SCH ×2 (09:06→20:41)
[2021-01-03] MEDS: allopurinol 300 MG tablet PO SCH (09:06)
[2021-01-03] MEDS: carvedilol 6.25mg tablet PO SCH ×2 (09:07→20:00)
[2021-01-03] MEDS: busPIRone 5mg tablet PO SCH (09:07)
[2021-01-03] MEDS: aripiprazole 5mg tablet PO SCH (09:08)
[2021-01-03] MEDS: potassium chloride 8mEq ER tablet PO SCH (09:08)
[2021-01-03] MEDS: celeCOXIB 100mg capsule PO SCH (09:08)
[2021-01-03] MEDS: buPROPion SR 150mg tablet PO SCH (09:08)
[2021-01-03] MEDS: lisinopril 10 MG tablet PO SCH ×2 (09:08→20:00)
[2021-01-03] MEDS: spironolactone 25 MG tablet PO SCH (09:09)
[2021-01-03] MEDS: furosemide 20 MG/2 ML vial IV SCH ×2 (09:17→21:55)
[2021-01-03 09:27] LABS: PLATELET COUNT 79 X10'3 (140-440)
[2021-01-03 09:49] LABS: PLATELET ESTIMATE DECREASED
[2021-01-03 09:50] LABS: ANISOCYTOSIS 3+; GIANT PLATELET FEW; HYPOCHROMASIA 1+; LARGE PLATELETS FEW
[2021-01-03 09:51] LABS: SCHISTOCYTES FEW
[2021-01-03 09:53] LABS: BURR CELLS FEW; ELLIPTOCYTES FEW
[2021-01-03 11:00] VITALS: BP 92/56
[2021-01-03 15:00] VITALS: BP 101/52
[2021-01-03] MEDS ORDERED: COVID-19 VACC, MRNA(PFIZER)/PF--BNT162b2 syringe IMVAC ONE (17:00)
[2021-01-03 18:00] VITALS: BP 88/60
--- NOTE | 2021-01-03 18:26 | NUR ---
Problems reprioritized. Patient report given, questions answered & plan of care reviewed with CHERISE Krause. Pt sitting up in bedside chair. All pt needs met at this time.
--- NOTE | 2021-01-03 18:30 | NUR ---
Patient in room PCU 3014. I have received report from CHERISE Rapp and had the opportunity to ask questions and assume patient care.
[2021-01-03] MEDS: atorvastatin 20mg tablet PO SCH (20:41)
[2021-01-03 22:00] VITALS: BP 96/66
[2021-01-03] MEDS: zolpidem 5mg tablet PO PRN (22:05)
[2021-01-04] MEDS: normal saline 1000ml 1,000 ML IV SCH (00:45)
[2021-01-04 02:00] VITALS: BP 104/78
--- NOTE | 2021-01-04 06:05 | NUR ---
Problems reprioritized. Patient report given, questions answered & plan of care reviewed with CHERISE Rapp.
--- NOTE | 2021-01-04 06:07 | NUR ---
Patient in room PCU 3014. I have received report from CHERISE Krause and had the opportunity to ask questions and assume patient care.
[2021-01-04 06:29] LABS: BASOPHILS % (AUTO) 1.2 % (0-1); EOSINOPHILS # (AUTO) 0.1 X10'3 (0-0.9); MONOCYTES # (AUTO) 0.5 X10'3 (0-0.9); NEUTROPHILS % (AUTO) 72.5 % (42-75)
[2021-01-04 06:31] LABS: HEMATOCRIT 44.1 % (42.0-52.0); LYMPHOCYTES # (AUTO) 0.5 X10'3 (1.1-4.8); LYMPHOCYTES % (AUTO) 11.1 % (21-51); MEAN CORPUSCULAR HEMOGLOBIN 26.5 PG (27.0-31.0); MEAN CORPUSCULAR HGB CONC 31.8 g/dL (33.0-36.5); MEAN CORPUSCULAR VOLUME 83.3 FL (78-98); MEAN PLATELET VOLUME 12.4 FL (7.4-10.4); MONOCYTES % (AUTO) 12.2 % (2-12); PLATELET COUNT 88 X10'3 (140-440); RED BLOOD COUNT 5.29 X10'6 (4.70-6.10); RED CELL DISTRIBUTION WIDTH 21.5 % (11.5-14.5); WHITE BLOOD COUNT 4.1 X10'3 (4.5-11.0)
[2021-01-04 07:00] VITALS: BP 97/67
[2021-01-04 07:02] LABS: ALANINE AMINOTRANSFERASE 44 U/L (12-78); ALBUMIN/GLOBULIN RATIO 0.8 (1.1-1.5); ALKALINE PHOSPHATASE 210 IU/L (46-116); ANION GAP 9 (8-16); ASPARTATE AMINO TRANSFERASE 35 U/L (10-37); BILIRUBIN,TOTAL 1.1 MG/DL (0.1-1.0); BLOOD UREA NITROGEN 34 MG/DL (7-18); BUN/CREATININE RATIO 27.4 (5.4-32.0); CALCIUM 8.9 MG/DL (8.5-10.1); CHLORIDE 104 MMOL/L (99-107); CREATININE 1.24 MG/DL (0.60-1.10); GLUCOSE 100 MG/DL (70-104); MAGNESIUM 2.2 MG/DL (1.5-2.4); POTASSIUM 4.8 MMOL/L (3.5-5.1); SODIUM 140 MMOL/L (135-145); TOTAL CARBON DIOXIDE 27.3 MMOL/L (24-32); TOTAL PROTEIN 6.6 G/DL (6.4-8.2); eGFR 57 ML/MIN
[2021-01-04] MEDS: spironolactone 25 MG tablet PO SCH (08:00)
[2021-01-04] MEDS: K and/or MAG REPLACEMENT MC SCH ×2 (08:00→20:00)
[2021-01-04] MEDS: celeCOXIB 100mg capsule PO SCH (09:35)
[2021-01-04] MEDS: potassium chloride 8mEq ER tablet PO SCH (09:35)
[2021-01-04] MEDS: allopurinol 300 MG tablet PO SCH (09:35)
[2021-01-04] MEDS: busPIRone 5mg tablet PO SCH (09:35)
[2021-01-04] MEDS: buPROPion SR 150mg tablet PO SCH (09:35)
[2021-01-04] MEDS: apixaban 5mg tablet PO SCH ×2 (09:35→21:25)
[2021-01-04] MEDS: aripiprazole 5mg tablet PO SCH (09:37)
[2021-01-04] MEDS: furosemide 20 MG/2 ML vial IV SCH (09:37)
[2021-01-04] MEDS ORDERED: furosemide 20 MG/2 ML vial IV ONE (10:20)
[2021-01-04 11:00] VITALS: BP 102/66
[2021-01-04 15:00] VITALS: BP 98/61
[2021-01-04 18:00] VITALS: BP 98/69
[2021-01-04] MEDS: carVEDilol 3.125mg tablet PO SCH (20:00)
[2021-01-04] MEDS: furosemide 40mg/4ml inj IV SCH (21:24)
[2021-01-04] MEDS: atorvastatin 20mg tablet PO SCH (21:25)
[2021-01-04 22:00] VITALS: BP 111/79
[2021-01-05 02:00] VITALS: BP 119/71
[2021-01-05 06:00] VITALS: BP 106/79
[2021-01-05 06:10] LABS: BASOPHILS # (AUTO) 0.1 X10'3 (0-0.2); LYMPHOCYTES # (AUTO) 0.6 X10'3 (1.1-4.8); MEAN CORPUSCULAR HGB CONC 31.7 g/dL (33.0-36.5); MONOCYTES # (AUTO) 0.6 X10'3 (0-0.9); WHITE BLOOD COUNT 4.5 X10'3 (4.5-11.0)
--- NOTE | 2021-01-05 06:11 | NUR ---
Patient in room PCU 3015. I have received report from CHERISE Krause and had the opportunity to ask questions and assume patient care.
[2021-01-05 06:13] LABS: BASOPHILS % (AUTO) 1.7 % (0-1); EOSINOPHILS # (AUTO) 0.2 X10'3 (0-0.9); EOSINOPHILS % (AUTO) 3.4 % (0-6); HEMATOCRIT 45.4 % (42.0-52.0); HEMOGLOBIN 14.4 g/dl (14.0-17.9); LYMPHOCYTES % (AUTO) 13.3 % (21-51); MEAN CORPUSCULAR HEMOGLOBIN 26.5 PG (27.0-31.0); MEAN CORPUSCULAR VOLUME 83.5 FL (78-98); MEAN PLATELET VOLUME 12.8 FL (7.4-10.4); MONOCYTES % (AUTO) 12.7 % (2-12); NEUTROPHILS # (AUTO) 3.1 X10'3 (1.8-7.7); NEUTROPHILS % (AUTO) 68.9 % (42-75); PLATELET COUNT 97 X10'3 (140-440); RED BLOOD COUNT 5.43 X10'6 (4.70-6.10); RED CELL DISTRIBUTION WIDTH 21.6 % (11.5-14.5)
[2021-01-05 06:47] LABS: ALANINE AMINOTRANSFERASE 42 U/L (12-78); ALBUMIN 3.3 G/DL (3.4-5.0); ALBUMIN/GLOBULIN RATIO 0.9 (1.1-1.5); ALKALINE PHOSPHATASE 229 IU/L (46-116); ANION GAP 11 (8-16); ASPARTATE AMINO TRANSFERASE 35 U/L (10-37); BILIRUBIN,TOTAL 1.3 MG/DL (0.1-1.0); BLOOD UREA NITROGEN 33 MG/DL (7-18); BUN/CREATININE RATIO 26.6 (5.4-32.0); CALCIUM 9.2 MG/DL (8.5-10.1); CHLORIDE 103 MMOL/L (99-107); CREATININE 1.24 MG/DL (0.60-1.10); GLUCOSE 107 MG/DL (70-104); MAGNESIUM 2.3 MG/DL (1.5-2.4); POTASSIUM 4.2 MMOL/L (3.5-5.1); SODIUM 142 MMOL/L (135-145); TOTAL CARBON DIOXIDE 28.2 MMOL/L (24-32); eGFR 57 ML/MIN
[2021-01-05 06:50] LABS: ANISOCYTOSIS 3+; LARGE PLATELETS FEW; PLATELET ESTIMATE DECREASED
[2021-01-05] MEDS: K and/or MAG REPLACEMENT MC SCH ×2 (08:00→20:00)
[2021-01-05] MEDS: lisinopril 2.5mg tablet PO SCH (08:47)
[2021-01-05] MEDS: aripiprazole 5mg tablet PO SCH (08:47)
[2021-01-05] MEDS: apixaban 5mg tablet PO SCH ×2 (08:48→20:00)
[2021-01-05] MEDS: buPROPion SR 150mg tablet PO SCH (08:48)
[2021-01-05] MEDS: potassium chloride 8mEq ER tablet PO SCH (08:48)
[2021-01-05] MEDS: carVEDilol 3.125mg tablet PO SCH ×2 (08:48→21:43)
[2021-01-05] MEDS: allopurinol 300 MG tablet PO SCH (08:48)
[2021-01-05] MEDS: celeCOXIB 100mg capsule PO SCH (08:48)
[2021-01-05] MEDS: spironolactone 25 MG tablet PO SCH (08:49)
[2021-01-05] MEDS: furosemide 40mg/4ml inj IV SCH ×2 (08:49→20:00)
[2021-01-05] MEDS: busPIRone 5mg tablet PO SCH (08:49)
[2021-01-05] MEDS: DOBUTamine-DoBUTrex 500mg/D5W 250 ML IV SCH (09:41)
[2021-01-05 11:00] VITALS: BP 100/66
--- NOTE | 2021-01-05 12:21 | NUR ---
paged regarding low BP PAGER ID: [phone] MESSAGE: room 3015B Marky Giles, patient has had a couple low BP since starting his dobutamine gtt. 86/57 and 83/50. His pressures have been soft and he is asymptomatic. Just informing you of BP lower than his normal. Thank you, CHERISE Santoro #[phone]
[2021-01-05 18:00] VITALS: BP 98/80
--- NOTE | 2021-01-05 18:42 | NUR ---
Problems reprioritized. Patient report given, questions answered & plan of care reviewed with CHERISE Servin.
[2021-01-05] MEDS: atorvastatin 20mg tablet PO SCH (21:43)
[2021-01-05] MEDS: ALPRAZolam 0.25mg tablet PO PRN (21:43)
[2021-01-05] MEDS: zolpidem 5mg tablet PO PRN (21:52)
[2021-01-05 22:00] VITALS: BP 123/76
[2021-01-05 23:00] VITALS: BP 118/98
--- NOTE | 2021-01-06 01:24 | NUR ---
code carrero called for acute confusion, see new orders
[2021-01-06] MEDS: LORazepam 2 mg/ml vial IV PRN ×5 (01:43→22:31)
[2021-01-06] MEDS: normal saline 1000ml 1,000 ML IV SCH (01:55)
[2021-01-06] MEDS: DOBUTamine-DoBUTrex 500mg/D5W 250 ML IV SCH ×2 (01:55→20:06)
[2021-01-06] MEDS ORDERED: haloperidol lactate 5mg/ml inj IM PRN (02:55)
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
[2021-01-06 06:00] VITALS: BP 124/89
[2021-01-06 06:10] LABS: EOSINOPHILS # (AUTO) 0.1 X10'3 (0-0.9); LYMPHOCYTES # (AUTO) 0.4 X10'3 (1.1-4.8); MEAN CORPUSCULAR HGB CONC 32.2 g/dL (33.0-36.5); MEAN PLATELET VOLUME 12.1 FL (7.4-10.4); MONOCYTES # (AUTO) 0.6 X10'3 (0-0.9); NEUTROPHILS # (AUTO) 3.9 X10'3 (1.8-7.7); WHITE BLOOD COUNT 5.1 X10'3 (4.5-11.0)
[2021-01-06 06:13] LABS: BASOPHILS # (AUTO) 0.1 X10'3 (0-0.2); EOSINOPHILS % (AUTO) 1.5 % (0-6); HEMATOCRIT 46.5 % (42.0-52.0); LYMPHOCYTES % (AUTO) 8.6 % (21-51); MEAN CORPUSCULAR HEMOGLOBIN 26.6 PG (27.0-31.0); MEAN CORPUSCULAR VOLUME 82.5 FL (78-98); MONOCYTES % (AUTO) 12.2 % (2-12); NEUTROPHILS % (AUTO) 76.7 % (42-75); PLATELET COUNT 103 X10'3 (140-440); RED BLOOD COUNT 5.64 X10'6 (4.70-6.10); RED CELL DISTRIBUTION WIDTH 21.4 % (11.5-14.5)
[2021-01-06 06:39] LABS: ALANINE AMINOTRANSFERASE 44 U/L (12-78); ALBUMIN 3.3 G/DL (3.4-5.0); ALBUMIN/GLOBULIN RATIO 0.9 (1.1-1.5); ALKALINE PHOSPHATASE 231 IU/L (46-116); ANION GAP 10 (8-16); ASPARTATE AMINO TRANSFERASE 35 U/L (10-37); BILIRUBIN,TOTAL 1.8 MG/DL (0.1-1.0); BLOOD UREA NITROGEN 29 MG/DL (7-18); BUN/CREATININE RATIO 23.4 (5.4-32.0); CALCIUM 9.3 MG/DL (8.5-10.1); CHLORIDE 103 MMOL/L (99-107); CREATININE 1.24 MG/DL (0.60-1.10); GLUCOSE 132 MG/DL (70-104); MAGNESIUM 2.1 MG/DL (1.5-2.4); POTASSIUM 4.1 MMOL/L (3.5-5.1); SODIUM 140 MMOL/L (135-145); TOTAL CARBON DIOXIDE 27.5 MMOL/L (24-32); TOTAL PROTEIN 6.9 G/DL (6.4-8.2); eGFR 57 ML/MIN
[2021-01-06] MEDS: K and/or MAG REPLACEMENT MC SCH ×2 (08:00→20:00)
[2021-01-06] MEDS: furosemide 40mg/4ml inj IV SCH ×2 (08:09→20:02)
[2021-01-06] MEDS: apixaban 5mg tablet PO SCH ×2 (08:10→20:14)
[2021-01-06] MEDS: lisinopril 2.5mg tablet PO SCH (08:10)
[2021-01-06] MEDS: carVEDilol 3.125mg tablet PO SCH ×2 (08:10→20:02)
[2021-01-06] MEDS: spironolactone 25 MG tablet PO SCH (08:11)
[2021-01-06] MEDS: potassium chloride 8mEq ER tablet PO SCH (08:11)
[2021-01-06] MEDS: celeCOXIB 100mg capsule PO SCH (08:11)
[2021-01-06] MEDS: aripiprazole 5mg tablet PO SCH (08:11)
[2021-01-06] MEDS: allopurinol 300 MG tablet PO SCH (08:12)
[2021-01-06] MEDS: buPROPion SR 150mg tablet PO SCH (08:12)
[2021-01-06] MEDS: busPIRone 5mg tablet PO SCH (08:12)
--- NOTE | 2021-01-06 08:36 | NUR ---
Per Dr Camacho, get ABG and place pt on Bipap. I will inform the primary RN Maude.
[2021-01-06 09:04] LABS: ABG BASE EXCESS 0.8 mmol/L (-2.0-2.0); ABG HCO3 23.6 mmol/L (22.0-26.0); ABG OXYGEN SATURATION 97.5 % (94-97); ABG PO2 (T) 90.6 mmHg (75.0-100.0); ALLEN'S TEST POSITIVE; FLOW 2 L/min; FMetHb 0.4 % (0.0-1.5); FO2Hb 96.1 % (94-97); PATIENT TEMPERATURE 37.1; TOTAL HEMOGLOBIN 16.2 G/dl (14.0-18.0)
--- NOTE | 2021-01-06 10:49 | NUR ---
Initial: Pt admit for CHF exacerbation with EF 15% and generalized weakness. Per physical assessment pt is A/O x 1, confused, combative, and resistive to care, currently in restraints with a sitter at bedside per EMR. Pt on a heart healthy diet documented with 100% PO intake throughout LOS with the exception of 75% and 50% PO intake at one meal each. Overall pt meeting estimated nutrient needs. Pt documented to be independent at meals though may need assistance if mentation does not improve. LBM 01/06. No nutrition intervention implemented at this time. Will continue to follow. Recommendations: 1) Continue heart healthy diet 2) Monitor need for assistance with meals given current mentation 3) Bowel care per rx 4) Scaled weight this admit; weekly scaled weights thereafter Addendum: 01/06/21 at [address] Amended: Links added.
[2021-01-06 11:00] VITALS: BP 126/90
[2021-01-06] MEDS: ALPRAZolam 0.25mg tablet PO PRN (12:01)
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
--- NOTE | 2021-01-06 13:52 | NUR ---
paged RT per Rusu, please place patient on bipap sosa. regardless of ABG results. Thank you, Maude LUONG #[phone]
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
[2021-01-06 15:00] VITALS: BP 129/81
[2021-01-06 16:42] LABS: ABG HCO3 29.1 mmol/L (22.0-26.0); ABG PCO2 (T) 40.8 mmHg (35.0-48.0); ABG PO2 (T) 105.3 mmHg (75.0-100.0); ALLEN'S TEST POSITIVE; FMetHb 0.4 % (0.0-1.5); FO2Hb 96.6 % (94-97); RESPIRATORY RATE 16 b/min; TIDAL VOLUME 548 mL; TOTAL HEMOGLOBIN 15.5 G/dl (14.0-18.0)
[2021-01-06 18:00] VITALS: BP 126/91
--- NOTE | 2021-01-06 18:00 | NUR ---
Patient in room U 3015. I have received report from MEMO LUONG and had the opportunity to ask questions and assume patient care. Addendum: 01/06/21 at 1952 by Malathi Cruz RN REPORT FROM LACY LUONG, CLARIFICATION
--- NOTE | 2021-01-06 18:24 | NUR ---
Problems reprioritized. Patient report given, questions answered & plan of care reviewed with CHERISE Servin.
[2021-01-06 20:00] VITALS: BP 132/85
[2021-01-06] MEDS: atorvastatin 20mg tablet PO SCH (21:00)
[2021-01-06 22:00] VITALS: BP 120/83
[2021-01-07] VITALS (9 sets, daily range): BP systolic 119–138; BP diastolic 73–87
[2021-01-07] MEDS: LORazepam 2 mg/ml vial IV PRN ×4 (00:49→20:56)
--- NOTE | 2021-01-07 06:25 | NUR ---
Problems reprioritized. Patient report given, questions answered & plan of care reviewed with PATRICIA LUONG.
--- NOTE | 2021-01-07 06:32 | NUR ---
Patient in room PCU 3015. I have received report from Malathi LUONG and had the opportunity to ask questions and assume patient care.
[2021-01-07 07:42] LABS: BASOPHILS % (AUTO) 0.6 % (0-1); EOSINOPHILS # (AUTO) 0.1 X10'3 (0-0.9); LYMPHOCYTES # (AUTO) 0.4 X10'3 (1.1-4.8); MEAN CORPUSCULAR HGB CONC 32.4 g/dL (33.0-36.5)
[2021-01-07 07:44] LABS: EOSINOPHILS % (AUTO) 1.3 % (0-6); HEMATOCRIT 43.1 % (42.0-52.0); HEMOGLOBIN 13.9 g/dl (14.0-17.9); LYMPHOCYTES % (AUTO) 6.5 % (21-51); MEAN CORPUSCULAR HEMOGLOBIN 26.6 PG (27.0-31.0); MEAN CORPUSCULAR VOLUME 82.2 FL (78-98); MEAN PLATELET VOLUME 11.6 FL (7.4-10.4); MONOCYTES # (AUTO) 0.9 X10'3 (0-0.9); MONOCYTES % (AUTO) 14.6 % (2-12); NEUTROPHILS # (AUTO) 4.5 X10'3 (1.8-7.7); PLATELET COUNT 105 X10'3 (140-440); RED BLOOD COUNT 5.24 X10'6 (4.70-6.10); RED CELL DISTRIBUTION WIDTH 21.4 % (11.5-14.5); WHITE BLOOD COUNT 5.8 X10'3 (4.5-11.0)
[2021-01-07] MEDS: K and/or MAG REPLACEMENT MC SCH ×2 (08:00→20:00)
[2021-01-07 08:04] LABS: ALANINE AMINOTRANSFERASE 29 U/L (12-78); ALBUMIN 2.6 G/DL (3.4-5.0); ALBUMIN/GLOBULIN RATIO 0.8 (1.1-1.5); ALKALINE PHOSPHATASE 167 IU/L (46-116); ANION GAP 5 (8-16); ASPARTATE AMINO TRANSFERASE 18 U/L (10-37); BILIRUBIN,TOTAL 2.1 MG/DL (0.1-1.0); BLOOD UREA NITROGEN 28 MG/DL (7-18); BUN/CREATININE RATIO 18.9 (5.4-32.0); CALCIUM 8.6 MG/DL (8.5-10.1); CHLORIDE 105 MMOL/L (99-107); CREATININE 1.48 MG/DL (0.60-1.10); GLUCOSE 107 MG/DL (70-104); MAGNESIUM 2.2 MG/DL (1.5-2.4); POTASSIUM 4.1 MMOL/L (3.5-5.1); SODIUM 139 MMOL/L (135-145); TOTAL CARBON DIOXIDE 28.9 MMOL/L (24-32); TOTAL PROTEIN 5.8 G/DL (6.4-8.2); eGFR 46 ML/MIN
[2021-01-07] MEDS: normal saline 1000ml 1,000 ML IV SCH (08:54)
[2021-01-07] MEDS: furosemide 40mg/4ml inj IV SCH ×2 (08:55→20:57)
[2021-01-07] MEDS: allopurinol 300 MG tablet PO SCH (09:01)
[2021-01-07] MEDS: lisinopril 2.5mg tablet PO SCH (09:02)
[2021-01-07] MEDS: carVEDilol 3.125mg tablet PO SCH ×2 (09:02→20:57)
[2021-01-07] MEDS: buPROPion SR 150mg tablet PO SCH (09:02)
[2021-01-07] MEDS: apixaban 5mg tablet PO SCH ×2 (09:03→20:57)
[2021-01-07] MEDS: aripiprazole 5mg tablet PO SCH (09:03)
[2021-01-07] MEDS: busPIRone 5mg tablet PO SCH (09:03)
[2021-01-07] MEDS: potassium chloride 8mEq ER tablet PO SCH (09:03)
[2021-01-07] MEDS: celeCOXIB 100mg capsule PO SCH (09:03)
[2021-01-07] MEDS: spironolactone 25 MG tablet PO SCH (09:04)
[2021-01-07] MEDS: DOBUTamine-DoBUTrex 500mg/D5W 250 ML IV SCH (14:06)
--- NOTE | 2021-01-07 18:31 | NUR ---
Problems reprioritized. Patient report given, questions answered & plan of care reviewed with Tara LUONG.
[2021-01-07] MEDS: atorvastatin 20mg tablet PO SCH (20:57)
[2021-01-08] VITALS (9 sets, daily range): BP systolic 102–126; BP diastolic 52–85
[2021-01-08] MEDS: DOBUTamine-DoBUTrex 500mg/D5W 250 ML IV SCH ×2 (03:25→09:40)
--- NOTE | 2021-01-08 06:35 | NUR ---
Patient in room PCU 3015. I have received report from Tara LUONG and had the opportunity to ask questions and assume patient care.
[2021-01-08 07:43] LABS: ALBUMIN 2.7 G/DL (3.4-5.0); ANION GAP 10 (8-16); BASOPHILS # (AUTO) 0.1 X10'3 (0-0.2); BLOOD UREA NITROGEN 33 MG/DL (7-18); BUN/CREATININE RATIO 14.2 (5.4-32.0); CALCIUM 8.9 MG/DL (8.5-10.1); CHLORIDE 104 MMOL/L (99-107); CREATININE 2.33 MG/DL (0.60-1.10); EOSINOPHILS # (AUTO) 0.2 X10'3 (0-0.9); GLUCOSE 107 MG/DL (70-104); HEMATOCRIT 46.8 % (42.0-52.0); HEMOGLOBIN 14.9 g/dl (14.0-17.9); MAGNESIUM 2.3 MG/DL (1.5-2.4); MEAN PLATELET VOLUME 12.2 FL (7.4-10.4); NEUTROPHILS # (AUTO) 4.8 X10'3 (1.8-7.7); POTASSIUM 4.5 MMOL/L (3.5-5.1); SODIUM 142 MMOL/L (135-145); TOTAL CARBON DIOXIDE 28.5 MMOL/L (24-32); eGFR 27 ML/MIN
[2021-01-08 07:46] LABS: BASOPHILS % (AUTO) 0.8 % (0-1); EOSINOPHILS % (AUTO) 2.7 % (0-6); LYMPHOCYTES # (AUTO) 0.5 X10'3 (1.1-4.8); LYMPHOCYTES % (AUTO) 7.3 % (21-51); MEAN CORPUSCULAR HEMOGLOBIN 26.8 PG (27.0-31.0); MEAN CORPUSCULAR HGB CONC 31.9 g/dL (33.0-36.5); MONOCYTES # (AUTO) 0.8 X10'3 (0-0.9); MONOCYTES % (AUTO) 13.3 % (2-12); NEUTROPHILS % (AUTO) 75.9 % (42-75); PLATELET COUNT 111 X10'3 (140-440); RED BLOOD COUNT 5.57 X10'6 (4.70-6.10); RED CELL DISTRIBUTION WIDTH 22.6 % (11.5-14.5); WHITE BLOOD COUNT 6.4 X10'3 (4.5-11.0)
[2021-01-08] MEDS: spironolactone 25 MG tablet PO SCH (08:00)
[2021-01-08] MEDS: K and/or MAG REPLACEMENT MC SCH ×2 (08:00→20:00)
[2021-01-08 08:43] LABS: PLATELET ESTIMATE DECREASED
[2021-01-08 08:44] LABS: ANISOCYTOSIS 3+; ELLIPTOCYTES 1+; HYPOCHROMASIA 1+; LARGE PLATELETS FEW; TARGET CELLS FEW
[2021-01-08] MEDS: furosemide 40mg/4ml inj IV SCH ×2 (08:44→19:35)
[2021-01-08 08:45] LABS: BURR CELLS FEW; TEAR DROP CELLS 1+
[2021-01-08] MEDS: apixaban 5mg tablet PO SCH ×2 (08:49→19:36)
[2021-01-08] MEDS: potassium chloride 8mEq ER tablet PO SCH (08:49)
[2021-01-08] MEDS: aripiprazole 5mg tablet PO SCH (08:49)
[2021-01-08] MEDS: allopurinol 300 MG tablet PO SCH (08:50)
[2021-01-08] MEDS: busPIRone 5mg tablet PO SCH (08:51)
[2021-01-08] MEDS: celeCOXIB 100mg capsule PO SCH (08:51)
[2021-01-08] MEDS: buPROPion SR 150mg tablet PO SCH (08:51)
[2021-01-08] MEDS: lisinopril 2.5mg tablet PO SCH (08:51)
[2021-01-08] MEDS: carVEDilol 3.125mg tablet PO SCH ×2 (08:52→20:00)
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
[2021-01-08] MEDS: LORazepam 2 mg/ml vial IV PRN ×4 (13:57→21:47)
--- NOTE | 2021-01-08 18:23 | NUR ---
Problems reprioritized. Patient report given, questions answered & plan of care reviewed with Nelida LUONG.
--- NOTE | 2021-01-08 19:23 | NUR ---
Patient in room PCU 3015. I have received report from CHERISE Waller and had the opportunity to ask questions and assume patient care.
[2021-01-08] MEDS: atorvastatin 20mg tablet PO SCH (19:36)
[2021-01-09] VITALS (8 sets, daily range): BP systolic 93–120; BP diastolic 63–82
[2021-01-09] MEDS: LORazepam 2 mg/ml vial IV PRN ×2 (00:43→16:14)
[2021-01-09] MEDS: DOBUTamine-DoBUTrex 500mg/D5W 250 ML IV SCH ×2 (01:06→20:41)
--- NOTE | 2021-01-09 06:00 | NUR ---
Patient in room PCU 3015. I have received report from Nelida LUONG and had the opportunity to ask questions and assume patient care.
--- NOTE | 2021-01-09 06:49 | NUR ---
Problems reprioritized. Patient report given, questions answered & plan of care reviewed with CHERISE Waller.
[2021-01-09 07:01] LABS: MAGNESIUM 2.4 MG/DL (1.5-2.4)
[2021-01-09] MEDS: K and/or MAG REPLACEMENT MC SCH ×2 (08:00→20:00)
[2021-01-09] MEDS: furosemide 40mg/4ml inj IV SCH ×2 (08:13→20:39)
[2021-01-09 08:36] LABS: ALBUMIN 2.6 G/DL (3.4-5.0); ANION GAP 13 (8-16); BLOOD UREA NITROGEN 47 MG/DL (7-18); BUN/CREATININE RATIO 14.2 (5.4-32.0); CALCIUM 8.7 MG/DL (8.5-10.1); CHLORIDE 102 MMOL/L (99-107); GLUCOSE 100 MG/DL (70-104); POTASSIUM 4.3 MMOL/L (3.5-5.1); SODIUM 140 MMOL/L (135-145); eGFR 18 ML/MIN
[2021-01-09 08:38] LABS: EOSINOPHILS # (AUTO) 0.2 X10'3 (0-0.9); LYMPHOCYTES # (AUTO) 0.4 X10'3 (1.1-4.8); MONOCYTES # (AUTO) 0.8 X10'3 (0-0.9); WHITE BLOOD COUNT 6.2 X10'3 (4.5-11.0)
[2021-01-09 08:39] LABS: BASOPHILS % (AUTO) 0.7 % (0-1); HEMOGLOBIN 13.7 g/dl (14.0-17.9); LYMPHOCYTES % (AUTO) 6.2 % (21-51); MEAN CORPUSCULAR HEMOGLOBIN 26.9 PG (27.0-31.0); MEAN CORPUSCULAR HGB CONC 32.6 g/dL (33.0-36.5); MEAN CORPUSCULAR VOLUME 82.8 FL (78-98); MONOCYTES % (AUTO) 13.1 % (2-12); NEUTROPHILS # (AUTO) 4.7 X10'3 (1.8-7.7); PLATELET COUNT 101 X10'3 (140-440); RED BLOOD COUNT 5.07 X10'6 (4.70-6.10); RED CELL DISTRIBUTION WIDTH 21.7 % (11.5-14.5)
[2021-01-09] MEDS: lisinopril 2.5mg tablet PO SCH (09:26)
[2021-01-09] MEDS: celeCOXIB 100mg capsule PO SCH (09:26)
[2021-01-09] MEDS: buPROPion SR 150mg tablet PO SCH (09:26)
[2021-01-09] MEDS: allopurinol 300 MG tablet PO SCH (09:26)
[2021-01-09] MEDS: potassium chloride 8mEq ER tablet PO SCH (09:26)
[2021-01-09] MEDS: busPIRone 5mg tablet PO SCH (09:27)
[2021-01-09] MEDS: carVEDilol 3.125mg tablet PO SCH ×2 (09:27→20:00)
[2021-01-09] MEDS: apixaban 5mg tablet PO SCH ×2 (09:27→20:39)
[2021-01-09] MEDS: spironolactone 25 MG tablet PO SCH (09:28)
[2021-01-09] MEDS: aripiprazole 5mg tablet PO SCH (09:28)
--- NOTE | 2021-01-09 09:53 | NUR ---
Patient in room PCU 3015. I have received report from Gabrielle LUONG and had the opportunity to ask questions and will assume patient care when he arrives to the floor.
[2021-01-09 10:51] LABS: ANISOCYTOSIS 3+; PLATELET ESTIMATE DECREASED
[2021-01-09 10:52] LABS: LARGE PLATELETS MODERATE
[2021-01-09 10:53] LABS: BURR CELLS 1+; ELLIPTOCYTES 1+; SCHISTOCYTES FEW; TARGET CELLS 1+
[2021-01-09 10:55] LABS: HYPOCHROMASIA 1+
--- NOTE | 2021-01-09 18:21 | NUR ---
Problems reprioritized. Patient report given, questions answered & plan of care reviewed with Nelida LUONG.
--- NOTE | 2021-01-09 18:31 | NUR ---
Patient in room PCU 3015. I have received report from CHERISE Waller and had the opportunity to ask questions and assume patient care.
[2021-01-09] MEDS: atorvastatin 20mg tablet PO SCH (20:39)
[2021-01-09] MEDS: ciprofloxacin 0.3% 2.5ml ophthalmic solution EACHEYE SCH (20:55)
[2021-01-10] VITALS (8 sets, daily range): BP systolic 102–111; BP diastolic 71–79
[2021-01-10] MEDS: normal saline 1000ml 1,000 ML IV SCH (00:45)
--- NOTE | 2021-01-10 03:28 | NUR ---
RT page Sent page to RT for bipap. Pt has episodes of apnea during sleep. RT has no bipap units available at the moment.
--- NOTE | 2021-01-10 06:00 | NUR ---
Patient in room PCU 3015. I have received report from yessy gao and had the opportunity to ask questions and assume patient care.
--- NOTE | 2021-01-10 06:00 | NUR ---
Patient in room U 3015. I have received report from Norma LUONG and had the opportunity to ask questions and assume patient care. Addendum: 01/10/21 at 0645 by Christin Bailey RN correction received report from Nelida LUONG
--- NOTE | 2021-01-10 06:33 | NUR ---
Problems reprioritized. Patient report given, questions answered & plan of care reviewed with CHERISE Waller.
[2021-01-10 07:36] LABS: BASOPHILS % (AUTO) 0.7 % (0-1); EOSINOPHILS # (AUTO) 0.2 X10'3 (0-0.9); LYMPHOCYTES # (AUTO) 0.3 X10'3 (1.1-4.8); MEAN CORPUSCULAR HGB CONC 32.6 g/dL (33.0-36.5); MONOCYTES # (AUTO) 0.7 X10'3 (0-0.9); PLATELET COUNT 117 X10'3 (140-440)
[2021-01-10 07:38] LABS: EOSINOPHILS % (AUTO) 2.9 % (0-6); HEMATOCRIT 41.2 % (42.0-52.0); HEMOGLOBIN 13.4 g/dl (14.0-17.9); LYMPHOCYTES % (AUTO) 5.9 % (21-51); MEAN CORPUSCULAR HEMOGLOBIN 27.2 PG (27.0-31.0); MEAN CORPUSCULAR VOLUME 83.5 FL (78-98); MEAN PLATELET VOLUME 11.6 FL (7.4-10.4); NEUTROPHILS # (AUTO) 4.2 X10'3 (1.8-7.7); NEUTROPHILS % (AUTO) 77.5 % (42-75); RED BLOOD COUNT 4.93 X10'6 (4.70-6.10); RED CELL DISTRIBUTION WIDTH 21.2 % (11.5-14.5); WHITE BLOOD COUNT 5.4 X10'3 (4.5-11.0)
[2021-01-10 07:47] LABS: ALBUMIN 2.7 G/DL (3.4-5.0); ANION GAP 10 (8-16); BLOOD UREA NITROGEN 60 MG/DL (7-18); BUN/CREATININE RATIO 13.2 (5.4-32.0); CALCIUM 8.6 MG/DL (8.5-10.1); CHLORIDE 101 MMOL/L (99-107); CREATININE 4.55 MG/DL (0.60-1.10); GLUCOSE 88 MG/DL (70-104); POTASSIUM 4.9 MMOL/L (3.5-5.1); SODIUM 135 MMOL/L (135-145); TOTAL CARBON DIOXIDE 23.8 MMOL/L (24-32); eGFR 13 ML/MIN
[2021-01-10] MEDS: ciprofloxacin 0.3% 2.5ml ophthalmic solution EACHEYE SCH ×3 (08:00→20:38)
[2021-01-10] MEDS: K and/or MAG REPLACEMENT MC SCH ×2 (08:00→20:00)
[2021-01-10 08:41] LABS: ANISOCYTOSIS 3+; LARGE PLATELETS FEW; PLATELET ESTIMATE DECREASED
[2021-01-10 08:42] LABS: ELLIPTOCYTES FEW
[2021-01-10] MEDS: celeCOXIB 100mg capsule PO SCH (09:08)
[2021-01-10] MEDS: lisinopril 2.5mg tablet PO SCH (09:08)
[2021-01-10] MEDS: buPROPion SR 150mg tablet PO SCH (09:09)
[2021-01-10] MEDS: aripiprazole 5mg tablet PO SCH (09:09)
[2021-01-10] MEDS: carVEDilol 3.125mg tablet PO SCH ×2 (09:09→20:38)
[2021-01-10] MEDS: potassium chloride 8mEq ER tablet PO SCH (09:09)
[2021-01-10] MEDS: apixaban 5mg tablet PO SCH ×2 (09:09→20:38)
[2021-01-10] MEDS: allopurinol 300 MG tablet PO SCH (09:09)
[2021-01-10] MEDS: spironolactone 25 MG tablet PO SCH (09:10)
[2021-01-10] MEDS: busPIRone 5mg tablet PO SCH (09:10)
[2021-01-10] MEDS: furosemide 40mg/4ml inj IV SCH (09:11)
--- NOTE | 2021-01-10 10:50 | NUR ---
PAGER ID: [phone] MESSAGE: Patient Marky Giles room 3015B has had declining kidney function BUN is 45 ROOM INSPECTOR 3.3 GFR 13. Please Advise Christin ext [phone]
--- NOTE | 2021-01-10 12:36 | NUR ---
Reassessment: Group Billing Coordinator consulted for renal status given acute renal failure with worsening creatinine per MD note. PO intake declined to 25-50% with all meal refusals 01/07, however noted pt back up to 100% PO intake at dinner 01/09. Pending documentation of PO intake for today. LBM 01/08. Will follow closely and monitor need for nutrition intervention pending additional trends in PO intake. Recommendations: 1) Continue heart healthy diet; monitor renal status and need for renal diet 2) Monitor need for assistance with meals given current mentation 3) Monitor need for ONS 4) Bowel care per rx 5) Scaled weight this admit; weekly scaled weights thereafter Addendum: 01/10/21 at [address] Amended: Links added.
[2021-01-10] MEDS: DOBUTamine-DoBUTrex 500mg/D5W 250 ML IV SCH (15:41)
--- NOTE | 2021-01-10 18:16 | NUR ---
Problems reprioritized. Patient report given, questions answered & plan of care reviewed with Nelida LUONG.
--- NOTE | 2021-01-10 19:29 | NUR ---
PAGER ID: [phone] MESSAGE: Marky Giles [id number] rm [id number] dx weak/fall; CHF; Afib, CKD hx AV paced Pt retaining urine, 1300ml on bladder scanner. Can we have an order for a straight cath? Thank you. Nelida [phone]
[2021-01-10] MEDS: atorvastatin 20mg tablet PO SCH (20:38)
--- NOTE | 2021-01-10 20:39 | NUR ---
Straight Cath 1350mL out on straight cath, urine was carol, clear. A small blood clot came out on the tube w/removal.
[2021-01-11] VITALS (8 sets, daily range): BP systolic 100–121; BP diastolic 65–85
--- NOTE | 2021-01-11 00:29 | NUR ---
[id number] MESSAGE: re 3015B Marky Giles - currently retaining 1130ml on bladder scan. Requesting carter - first bladder retention was 1300ml at 1930. Alem [phone]
--- NOTE | 2021-01-11 06:57 | NUR ---
Problems reprioritized. Patient report given, questions answered & plan of care reviewed with CHERISE East.
[2021-01-11] MEDS: K and/or MAG REPLACEMENT MC SCH ×2 (08:00→20:00)
[2021-01-11] MEDS: carVEDilol 3.125mg tablet PO SCH ×2 (08:00→20:58)
[2021-01-11] MEDS: potassium chloride 8mEq ER tablet PO SCH (08:00)
[2021-01-11 09:57] LABS: BASOPHILS % (AUTO) 0.8 % (0-1); EOSINOPHILS # (AUTO) 0.2 X10'3 (0-0.9); LYMPHOCYTES # (AUTO) 0.4 X10'3 (1.1-4.8); MONOCYTES # (AUTO) 0.7 X10'3 (0-0.9); NEUTROPHILS # (AUTO) 3.4 X10'3 (1.8-7.7); WHITE BLOOD COUNT 4.7 X10'3 (4.5-11.0)
[2021-01-11 09:59] LABS: EOSINOPHILS % (AUTO) 3.8 % (0-6); HEMATOCRIT 40.4 % (42.0-52.0); MEAN CORPUSCULAR HEMOGLOBIN 26.3 PG (27.0-31.0); MEAN CORPUSCULAR HGB CONC 32.1 g/dL (33.0-36.5); MEAN PLATELET VOLUME 11.2 FL (7.4-10.4); MONOCYTES % (AUTO) 14.5 % (2-12); NEUTROPHILS % (AUTO) 72.9 % (42-75); PLATELET COUNT 125 X10'3 (140-440); RED BLOOD COUNT 4.93 X10'6 (4.70-6.10); RED CELL DISTRIBUTION WIDTH 21.3 % (11.5-14.5)
[2021-01-11 10:04] LABS: ALANINE AMINOTRANSFERASE 17 U/L (12-78); ALBUMIN 2.6 G/DL (3.4-5.0); ALBUMIN/GLOBULIN RATIO 0.7 (1.1-1.5); ALKALINE PHOSPHATASE 166 IU/L (46-116); ANION GAP 10 (8-16); ASPARTATE AMINO TRANSFERASE 15 U/L (10-37); BILIRUBIN,TOTAL 1.7 MG/DL (0.1-1.0); BLOOD UREA NITROGEN 54 MG/DL (7-18); BUN/CREATININE RATIO 16.1 (5.4-32.0); CALCIUM 8.6 MG/DL (8.5-10.1); CHLORIDE 100 MMOL/L (99-107); CREATININE 3.36 MG/DL (0.60-1.10); GLUCOSE 136 MG/DL (70-104); POTASSIUM 4.1 MMOL/L (3.5-5.1); SODIUM 137 MMOL/L (135-145); TOTAL CARBON DIOXIDE 27.2 MMOL/L (24-32); TOTAL PROTEIN 6.2 G/DL (6.4-8.2); eGFR 18 ML/MIN
[2021-01-11] MEDS: DOBUTamine-DoBUTrex 500mg/D5W 250 ML IV SCH (10:15)
[2021-01-11] MEDS: apixaban 5mg tablet PO SCH ×2 (10:16→20:58)
[2021-01-11] MEDS: buPROPion SR 150mg tablet PO SCH (10:16)
[2021-01-11] MEDS: aripiprazole 5mg tablet PO SCH (10:16)
[2021-01-11] MEDS: busPIRone 5mg tablet PO SCH (10:17)
[2021-01-11] MEDS: allopurinol 100mg tablet PO SCH (10:17)
[2021-01-11 11:21] LABS: MAGNESIUM 2.4 MG/DL (1.5-2.4); PHOSPHORUS 5.1 MG/DL (2.3-4.5)
[2021-01-11] MEDS: ciprofloxacin 0.3% 2.5ml ophthalmic solution EACHEYE SCH ×2 (13:25→20:59)
[2021-01-11] MEDS: LORazepam 2 mg/ml vial IV PRN ×2 (14:26→16:18)
--- NOTE | 2021-01-11 14:42 | NUR ---
PAGER ID: [phone] MESSAGE: Room 3011Z. Marky Giles. LENA Vera in room, wanting to speak re: comfort care vs hospice. Thanks, Janel [phone]
[2021-01-11] MEDS: ALPRAZolam 0.25mg tablet PO PRN (15:28)
[2021-01-11] MEDS: normal saline 1000ml 1,000 ML IV SCH (16:22)
--- NOTE | 2021-01-11 19:16 | NUR ---
Hourly rounding for day shift - pt has been able to reposition self with the sitter helping throughout shift. All needs met.
--- NOTE | 2021-01-11 19:17 | NUR ---
Problems reprioritized. Patient report given, questions answered & plan of care reviewed with CHERISE Glez.
[2021-01-11] MEDS: atorvastatin 20mg tablet PO SCH (20:58)
[2021-01-12] VITALS (8 sets, daily range): BP systolic 90–124; BP diastolic 42–91
[2021-01-12] MEDS: LORazepam 2 mg/ml vial IV PRN ×4 (01:42→22:52)
--- NOTE | 2021-01-12 02:02 | NUR ---
PAGER ID: [phone] MESSAGE: Cleve Marky Giles [facility] room 3015-B Dx: Fall and CHF exacerbation Pt has red tinged urine, new onset. Amaris [phone] Addendum: 01/12/21 at 0205 by Amaris De Los Santos - Traveler RN Dr Martín lawson, ordered to Hold all antiplatelet medications; Mello Lugo H/H will be drawn with morning labs.
[2021-01-12] MEDS: DOBUTamine-DoBUTrex 500mg/D5W 250 ML IV SCH (03:14)
[2021-01-12 06:03] LABS: BASOPHILS # (AUTO) 0.1 X10'3 (0-0.2); HEMOGLOBIN 13.4 g/dl (14.0-17.9); MEAN CORPUSCULAR HEMOGLOBIN 26.7 PG (27.0-31.0); MONOCYTES # (AUTO) 0.7 X10'3 (0-0.9); NEUTROPHILS # (AUTO) 3.2 X10'3 (1.8-7.7); WHITE BLOOD COUNT 4.6 X10'3 (4.5-11.0)
[2021-01-12 06:05] LABS: BASOPHILS % (AUTO) 1.4 % (0-1); EOSINOPHILS # (AUTO) 0.1 X10'3 (0-0.9); HEMATOCRIT 41.3 % (42.0-52.0); LYMPHOCYTES # (AUTO) 0.5 X10'3 (1.1-4.8); LYMPHOCYTES % (AUTO) 11.2 % (21-51); MEAN CORPUSCULAR HGB CONC 32.4 g/dL (33.0-36.5); MEAN CORPUSCULAR VOLUME 82.3 FL (78-98); MEAN PLATELET VOLUME 11.4 FL (7.4-10.4); MONOCYTES % (AUTO) 15.3 % (2-12); NEUTROPHILS % (AUTO) 69.1 % (42-75); PLATELET COUNT 141 X10'3 (140-440); RED BLOOD COUNT 5.02 X10'6 (4.70-6.10); RED CELL DISTRIBUTION WIDTH 21.5 % (11.5-14.5)
[2021-01-12 06:39] LABS: ALANINE AMINOTRANSFERASE 14 U/L (12-78); ALBUMIN 2.7 G/DL (3.4-5.0); ALBUMIN/GLOBULIN RATIO 0.7 (1.1-1.5); ALKALINE PHOSPHATASE 181 IU/L (46-116); ANION GAP 9 (8-16); ASPARTATE AMINO TRANSFERASE 15 U/L (10-37); BILIRUBIN,TOTAL 1.8 MG/DL (0.1-1.0); BLOOD UREA NITROGEN 40 MG/DL (7-18); CHLORIDE 105 MMOL/L (99-107); CREATININE 1.74 MG/DL (0.60-1.10); GLUCOSE 83 MG/DL (70-104); MAGNESIUM 2.6 MG/DL (1.5-2.4); PHOSPHORUS 3.6 MG/DL (2.3-4.5); POTASSIUM 4.1 MMOL/L (3.5-5.1); SODIUM 139 MMOL/L (135-145); TOTAL CARBON DIOXIDE 25.2 MMOL/L (24-32); TOTAL PROTEIN 6.6 G/DL (6.4-8.2); eGFR 38 ML/MIN
--- NOTE | 2021-01-12 06:42 | NUR ---
Patient in room PCU 3015. I have received report from Amaris LUONG and had the opportunity to ask questions and assume patient care.
[2021-01-12] MEDS: aripiprazole 5mg tablet PO SCH (08:30)
[2021-01-12] MEDS: potassium chloride 8mEq ER tablet PO SCH (08:30)
[2021-01-12] MEDS: buPROPion SR 150mg tablet PO SCH (08:30)
[2021-01-12] MEDS: busPIRone 5mg tablet PO SCH (08:30)
[2021-01-12] MEDS: allopurinol 100mg tablet PO SCH (08:30)
[2021-01-12] MEDS: ciprofloxacin 0.3% 2.5ml ophthalmic solution EACHEYE SCH (08:31)
[2021-01-12] MEDS: carVEDilol 3.125mg tablet PO SCH (08:31)
[2021-01-12] MEDS: K and/or MAG REPLACEMENT MC SCH (08:36)
[2021-01-12 10:01] LABS: ANISOCYTOSIS 3+; BURR CELLS 1+; ELLIPTOCYTES 1+; PLATELET ESTIMATE DECREASED; SCHISTOCYTES FEW
--- NOTE | 2021-01-12 10:10 | NUR ---
Cheld Felipe PAGER ID: [phone] MESSAGE: [facility] 2015B Marky Giles, You placed a diet order of COMFORT CARE. Please call [phone] Flaquita LUONG, Code Status needs to be change. I would like to be advised about discontinuing medications. Need clarification.
--- NOTE | 2021-01-12 10:14 | NUR ---
Dr. Rivas called back and clarified to stop all labs, all medications except for pain and anxiety medications. She will change code status to PALLIATIVE/COMFORT CARE
[2021-01-12] MEDS: ALPRAZolam 0.25mg tablet PO PRN (10:39)
--- NOTE | 2021-01-12 13:43 | NUR ---
F/u: Noted patient's code status has been made palliative/comfort care. [facility] 01/10 per I&O. Will continue to follow per LOS. Recommendations: 1) Bowel care per comfort care measures Addendum: 01/12/21 at [address] Amended: Links added.
--- NOTE | 2021-01-12 16:51 | NUR ---
Paged Felipe regarding need pain medication for comfort care patient PAGER ID: [phone] MESSAGE: U rm [id number], comfort care patient Tiffanienahomy Marky actively passing away. I would like to request Morphine IV. Please advise. Flaquita LUONG [phone]
--- NOTE | 2021-01-12 16:57 | NUR ---
Called Family member LD OCHOA (cousin): Patient is declining at this time called Jody as well
[2021-01-12] MEDS: morphine 2 MG/ML inj. syringe IV PRN ×3 (17:04→22:53)
--- NOTE | 2021-01-12 18:35 | NUR ---
Problems reprioritized. Patient report given, questions answered & plan of care reviewed with Prudence RN.
--- NOTE | 2021-01-12 18:43 | NUR ---
Patient in room PCU 3015. I have received report from ANSHUL LUONG and had the opportunity to ask questions and assume patient care.
[2021-01-13] MEDS: LORazepam 2 mg/ml vial IV PRN ×6 (01:13→23:35)
[2021-01-13] MEDS: morphine 2 MG/ML inj. syringe IV PRN ×6 (03:51→21:37)
--- NOTE | 2021-01-13 06:00 | NUR ---
Patient in room PCU 3014. I have received report from linda krishnamurthy and had the opportunity to ask questions and assume patient care.
--- NOTE | 2021-01-13 06:24 | NUR ---
Problems reprioritized. Patient report given, questions answered & plan of care reviewed with ISRA LUONG.
[2021-01-13] MEDS: ESCITALOPRAM OXALATE 5 MG TABLET PO SCH (08:00)
--- NOTE | 2021-01-13 08:05 | NUR ---
Held lexipro this am, pt sat up in, opened eyes and was unable to gather the stregth to swallow any water or coffee after requesting it. holding po meds
--- NOTE | 2021-01-13 11:00 | NUR ---
1100, aprox this time pt able to take sips on oral spongues. he would fall asleep after sip, have a 10 sec apnea period then arouse enough with his breathing to follow commands to swallow - which he did effectively- no aspiration
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
--- NOTE | 2021-01-13 13:55 | NUR ---
Received orders from to increase morphine - see order PAGER ID: [phone] MESSAGE: [id number] Pt verbally c/o breakthrough pain. He has Morphine 1mg q2hr. His last dose was 1hr 15 min ago. Please advise . April [phone]
--- NOTE | 2021-01-13 14:31 | NUR ---
pt was showing increased signs of discomfort and verbalized to family when asked" i am hurting", new orders obtained and pt showing signs that he is more omfortable now, rr 20's still with apnic periods of about 10sec
--- NOTE | 2021-01-13 18:35 | NUR ---
Patient in room PCU 3015. I have received report from Luis LUONG and had the opportunity to ask questions and assume patient care.
--- NOTE | 2021-01-13 18:42 | NUR ---
pt winced at flush of last medical research assistant, started new 20g iv to R fa- good blood return and flushes well
[2021-01-13 22:00] VITALS: BP 117/82
--- NOTE | 2021-01-14 02:00 | NUR ---
Pt in V-tach in the 130's to 150's. Pt woke up from a deep sleep and states he is in pain. Morphine given per orders for pain. Will continue to monitor, and enhance pts comfort.
[2021-01-14] MEDS: morphine 2 MG/ML inj. syringe IV PRN ×7 (02:22→22:54)
[2021-01-14] MEDS: LORazepam 2 mg/ml vial IV PRN ×8 (03:41→22:53)
--- NOTE | 2021-01-14 04:19 | NUR ---
Pt is back in sinus in the 90's. He is resting comfortably at this time.
--- NOTE | 2021-01-14 06:22 | NUR ---
Problems reprioritized. Patient report given, questions answered & plan of care reviewed with Tamela LUONG.
--- NOTE | 2021-01-14 06:38 | NUR ---
Patient in room PCU 3015. I have received report from Nelida LUONG and had the opportunity to ask questions and assume patient care.
[2021-01-14 07:00] VITALS: BP 114/74
[2021-01-14] MEDS: apixaban 5mg tablet PO SCH ×2 (08:00→20:00)
[2021-01-14] MEDS: ESCITALOPRAM OXALATE 5 MG TABLET PO SCH (08:00)
--- NOTE | 2021-01-14 09:51 | NUR ---
Problems reprioritized. Patient report given, questions answered & plan of care reviewed with Erica LUONG.
--- NOTE | 2021-01-14 13:35 | NUR ---
LENA CORREA AND DESTINY NOTIFIED OF PT EMINENT PASSING.
[2021-01-14 16:00] VITALS: BP 110/78
--- NOTE | 2021-01-14 18:30 | NUR ---
Problems reprioritized. Patient report given, questions answered & plan of care reviewed with claritza krishnamurthy.
--- NOTE | 2021-01-14 18:49 | NUR ---
Patient in room PCU 3015. I have received report from Erica LUONG and had the opportunity to ask questions and assume patient care.
[2021-01-14 22:40] VITALS: BP 114/87
[2021-01-15] MEDS: LORazepam 2 mg/ml vial IV PRN ×5 (01:57→15:14)
[2021-01-15] MEDS: morphine 2 MG/ML inj. syringe IV PRN ×6 (01:58→22:07)
[2021-01-15 06:00] VITALS: BP 115/72
--- NOTE | 2021-01-15 06:11 | NUR ---
Patient in room PCU 3015. I have received report from Silvio and had the opportunity to ask questions and assume patient care.
--- NOTE | 2021-01-15 06:45 | NUR ---
Problems reprioritized. Patient report given, questions answered & plan of care reviewed with Sammy LUONG.
[2021-01-15] MEDS: apixaban 5mg tablet PO SCH (07:39)
[2021-01-15] MEDS: ESCITALOPRAM OXALATE 5 MG TABLET PO SCH (07:40)
[2021-01-15 11:00] VITALS: BP 112/63
--- NOTE | 2021-01-15 11:36 | NUR ---
Per Dr Mccartney, Ok to removed telemetry box and decrease VS frequency to Q24 hrs.
[2021-01-15] MEDS ORDERED: LORazepam 2 mg/ml vial IV PRN (14:45)
[2021-01-16] MEDS: morphine 2 MG/ML inj. syringe IV PRN ×2 (04:02→10:42)
[2021-01-16 06:00] VITALS: BP 120/90
--- NOTE | 2021-01-16 06:43 | NUR ---
Patient in room PCU 3015. I have received report from mandy krishnamurthy and had the opportunity to ask questions and assume patient care.
--- NOTE | 2021-01-16 06:51 | NUR ---
Problems reprioritized. Patient report given, questions answered & plan of care reviewed with Ron LUONG. Addendum: 01/16/21 at 0652 by Gordo Lazar RN Amended: Links added.
[2021-01-16] MEDS: ESCITALOPRAM OXALATE 5 MG TABLET PO SCH (08:00)
[2021-01-16] MEDS ORDERED: scopolamine 1mg/72 hr patch TD ONE (10:00)
--- NOTE | 2021-01-16 11:35 | NUR ---
Page Sent PAGER ID: [phone] MESSAGE: [id number] b Dileep. pt [facility] [phone]. [phone]
--- NOTE | 2021-01-16 15:26 | NUR ---
pt at 1131, family was notified and some at bedside, post mortem care is provided, pt was prepped for transport to [facility] who picked him up at 1523.
== END 2021-01-16 15:25 | DRG 291 ==
LOC: ER 22:16 → ED HOLD 01-02 00:45 → PCU 3S 01-02 11:59
PROVIDERS: ADMIT Internal Medicine; ATTEND Family Medicine
PROC: 5A09357 Assistance with Respiratory Ventilation, Less than 24 Consecutive Hours, Continuous Positive Airway Pressure (ICD-10-PCS; principal; 2021-01-06)
PROC: 5A09357 Assistance with Respiratory Ventilation, Less than 24 Consecutive Hours, Continuous Positive Airway Pressure (ICD-10-PCS; 2021-01-07)
DX: I13.0 Hypertensive heart and chronic kidney disease with heart failure and stage 1 through stage 4 chronic kidney disease, or unspecified chronic kidney disease (principal); I50.23 Acute on chronic systolic (congestive) heart failure; N17.9 Acute kidney failure, unspecified; I25.10 Atherosclerotic heart disease of native coronary artery without angina pectoris; N18.30 Chronic kidney disease, stage 3 unspecified; I48.91 Unspecified atrial fibrillation; E86.0 Dehydration; D69.6 Thrombocytopenia, unspecified; Z60.2 Problems related to living alone; W07.XXXA Fall from chair, initial encounter; E78.5 Hyperlipidemia, unspecified; F41.8 Other specified anxiety disorders; Z51.5 Encounter for palliative care; Z66 Do not resuscitate; H10.89 Other conjunctivitis; Z20.822 Contact with and (suspected) exposure to COVID-19; Z80.0 Family history of malignant neoplasm of digestive organs; Z91.81 History of falling; Z95.0 Presence of cardiac pacemaker; Y93.89 Activity, other specified; Y92.098 Other place in other non-institutional residence as the place of occurrence of the external cause; Y99.8 Other external cause status; Z79.899 Other long term (current) drug therapy; Z91.11 Patient's noncompliance with dietary regimen
CPT/HCPCS: 0002A; 36415; 36600; 70450; 71045; 71250; 76770; 80048; 80053; 80320; 81003; 82803; 83605; 83735; 83880; 84100; 84145; 84484; 85008; 85018; 85025; 87040; 87081; 87635; 91300; 93005; 93306; 94660; 94760; 97110; 97116; 97161; 97530; 99285; C9803; G0378; J1250; J1940; J2060; J2270; J2405; J7030; J7040